=== PATIENT | female | born 1930 | race Caucasian/White ===

== ENCOUNTER → 2017-06-09 | Outpatient (REF) | payer MEDICARE ==
[2017-06-09 17:54] LABS: BASO % 0.4 % (0.0-1.0); EOS # 0.3 10^3/uL (0.0-0.50); EOS % 2.7 % (0.0-3.0); HEMATOCRIT 41.3 % (36.0-47.0); HEMOGLOBIN 13.6 g/dl (12.0-15.5); IMMATURE GRANULOCYTE % 0.2 % (0-3.0); LYMPH # 2.8 10^3/uL (1.5-4.5); LYMPH % 28.2 % (24.0-44.0); MEAN CORPUSCULAR HEMOGLOBIN 30.5 pg (27.0-33.0); MEAN CORPUSCULAR HGB CONC 32.9 g/dl (32.0-36.5); MEAN CORPUSCULAR VOLUME 92.6 fl (80.0-96.0); MONO # 1.1 10^3/uL (0.0-0.8); MONO % 11.3 % (0.0-5.0); NEUTROPHILS # 5.6 10^3/uL (1.8-7.7); NEUTROPHILS % 57.2 % (36.0-66.0); PLATELET COUNT, AUTOMATED 312 10^3/uL (150-450); RED BLOOD COUNT 4.46 10^6/uL (4.00-5.40); RED CELL DISTRIBUTION WIDTH 12.8 % (11.5-14.5); WHITE BLOOD COUNT 9.9 10^3/uL (4.0-10.0)
[2017-06-09 18:22] LABS: ALBUMIN 3.4 GM/DL (3.2-5.2); ALBUMIN/GLOBULIN RATIO 0.77 (1.00-1.93); ALKALINE PHOSPHATASE 60 U/L (45-117); ALT/SGPT 25 U/L (12-78); ANION GAP 9 MEQ/L (8-16); AST/SGOT 10 U/L (7-37); BILIRUBIN,TOTAL 0.3 MG/DL (0.2-1.0); BLOOD UREA NITROGEN 19 MG/DL (7-18); CALCIUM LEVEL 8.7 MG/DL (8.8-10.2); CARBON DIOXIDE LEVEL 27 MEQ/L (21-32); CHLORIDE LEVEL 105 MEQ/L (98-107); CREATININE FOR GFR 0.64 MG/DL (0.55-1.30); GLOMERULAR FILTRATION RATE > 60.0 (>32); GLUCOSE, FASTING 138 MG/DL (70-100); POTASSIUM SERUM 4.1 MEQ/L (3.5-5.1); SODIUM LEVEL 141 MEQ/L (136-145); TOTAL PROTEIN 7.8 GM/DL (6.4-8.2)
== END ==
LOC: M SFHCLERA 14:16
DX: R26.2 Difficulty in walking, not elsewhere classified (principal)
CPT/HCPCS: 80053

== ENCOUNTER 2019-11-13 14:48 | Inpatient (IN) | payer MEDICARE ==
[~2019-11-13] VITALS: Ht 152.4 cm; Wt 57.6 kg
[~2019-11-13 14:48] MED LIST: FURO40TA2 PO; TRAM50TA2 PO
[2019-11-13 17:00] VITALS: BP 132/67
[2019-11-13] MEDS ORDERED: cefTRIAXone SOD 1 GM in D5W MINI-BAG PLUS 50 ML IV SCH (17:15)
[2019-11-13] MEDS ORDERED: NS 0.45% 1,000 ML IV SCH (17:15)
[2019-11-13] MEDS ORDERED: POTA10IN IV (18:37)
[2019-11-13] MEDS ORDERED: POTA1INJ IV (18:37)
[2019-11-13] MEDS ORDERED: POTA20IN2 IV (18:37)
[2019-11-13] MEDS ORDERED: CEFT1INJ5 IV (18:37)
[2019-11-13 18:57] LABS: BASO % 0.4 % (0.0-1.0); EOS # 0.1 10^3/uL (0.0-0.5); EOS % 1.2 % (0.0-3.0); HEMATOCRIT 42.4 % (36.0-47.0); HEMOGLOBIN 12.4 g/dl (12.0-15.5); LYMPH % 14.4 % (24.0-44.0); MEAN CORPUSCULAR HEMOGLOBIN 29.5 pg (27.0-33.0); MEAN CORPUSCULAR HGB CONC 29.2 g/dl (32.0-36.5); MONO # 0.6 10^3/uL (0.0-0.8); MONO % 9.3 % (0.0-5.0); NEUTROPHILS # 5.1 10^3/uL (1.5-8.5); NEUTROPHILS % 74.4 % (36.0-66.0); PLATELET COUNT, AUTOMATED 174 10^3/uL (150-450); WHITE BLOOD COUNT 6.9 10^3/uL (4.0-10.0)
[2019-11-13 19:14] LABS: HEMOGLOBIN A1c 5.8 %
[2019-11-13 19:16] LABS: ERYTHROCYTE SEDIMENTATION RATE 67 mm/hr (0-30)
[2019-11-13 19:19] LABS: ALBUMIN 2.6 GM/DL (3.2-5.2); ALT/SGPT 25 U/L (12-78); BILIRUBIN,TOTAL 1.5 MG/DL (0.2-1.0); BLOOD UREA NITROGEN 31 MG/DL (7-18); C REACTIVE PROTEIN QUANTITATIV 4.42 MG/DL (0.00-0.30); CALCIUM LEVEL 8.9 MG/DL (8.8-10.2); CARBON DIOXIDE LEVEL 33 MEQ/L (21-32); CHLORIDE LEVEL 122 MEQ/L (98-107); CREATININE FOR GFR 0.65 MG/DL (0.55-1.30); GLOMERULAR FILTRATION RATE > 60.0 (>32); GLUCOSE, FASTING 104 MG/DL (70-100); SODIUM LEVEL 159 MEQ/L (136-145); TOTAL PROTEIN 7.2 GM/DL (6.4-8.2)
[2019-11-13] MEDS ORDERED: FLEEENE12 PR (19:28)
[2019-11-13] MEDS ORDERED: ASPI-161 PO (19:28)
[2019-11-13] MEDS ORDERED: MOM30SS2 PO (19:28)
[2019-11-13] MEDS ORDERED: DULC10SU2 PR (19:28)
[2019-11-13 19:30] LABS: CK-MB VALUE MASS 7.9 NG/ML (<3.6); DIGOXIN LEVEL 0.1 NG/ML (0.5-2.0); MAGNESIUM LEVEL 1.9 MG/DL (1.8-2.4); MB/CK RELATIVE INDEX 9.63 (< OR =4); THYROID STIMULATING HORMONE 0.44 uIU/ML (0.358-3.740); TROPONIN I 0.04 NG/ML (< 0.10)
[2019-11-13] MEDS ORDERED: REME15TA PO (19:32)
[2019-11-13] MEDS ORDERED: ACET-907 PO (19:32)
[2019-11-13] MEDS ORDERED: SANT250O8 TOP (19:32)
[2019-11-13] MEDS ORDERED: ATOR40TA75 PO (19:32)
[2019-11-13] MEDS ORDERED: LISI2.5T2 PO (19:32)
[2019-11-13] MEDS ORDERED: DIGO0.123 PO (19:32)
[2019-11-13] MEDS ORDERED: METO1TAB7 PO (19:32)
[2019-11-13] MEDS ORDERED: POTASSIUM CHLORIDE 10% LIQ 20 MEQ/15 ML UDC PO SCH (21:00)
[2019-11-13] MEDS: KCL 10MEQ/100ML SWI (KRUN) 10 MEQ in IV 1 EA IV SCH ×3 (21:08→23:12)
[2019-11-13 22:00] VITALS: BP 134/66
[2019-11-13] MEDS ORDERED: KCL 20MEQ IN 0.45NS 1000ML 1,000 ML IV SCH (22:00)
[2019-11-13] MEDS: ENOXAPARIN 30MG/0.3ML SYRINGE (J1650 PER 10MG) SC SCH (23:11)
[2019-11-14 00:55] LABS: BLOOD UREA NITROGEN 31 MG/DL (7-18); CALCIUM LEVEL 8.6 MG/DL (8.8-10.2); CARBON DIOXIDE LEVEL 34 MEQ/L (21-32); CHLORIDE LEVEL 122 MEQ/L (98-107); CREATININE FOR GFR 0.64 MG/DL (0.55-1.30); GLOMERULAR FILTRATION RATE > 60.0 (>32); GLUCOSE, FASTING 95 MG/DL (70-100); POTASSIUM SERUM 3.7 MEQ/L (3.5-5.1); SODIUM LEVEL 161 MEQ/L (136-145)
[2019-11-14] MEDS: NS 0.45% 1,000 ML IV SCH ×4 (01:35→15:58)
[2019-11-14 06:00] VITALS: BP 131/64
[2019-11-14 07:02] LABS: HEMATOCRIT 40.4 % (36.0-47.0); HEMOGLOBIN 11.8 g/dl (12.0-15.5); MEAN CORPUSCULAR HEMOGLOBIN 29.6 pg (27.0-33.0); MEAN CORPUSCULAR HGB CONC 29.2 g/dl (32.0-36.5); MEAN CORPUSCULAR VOLUME 101.5 fl (80.0-96.0); PLATELET COUNT, AUTOMATED 168 10^3/uL (150-450); RED BLOOD COUNT 3.98 10^6/uL (4.00-5.40); WHITE BLOOD COUNT 6.4 10^3/uL (4.0-10.0)
[2019-11-14 07:05] LABS: BLOOD UREA NITROGEN 29 MG/DL (7-18); CALCIUM LEVEL 8.3 MG/DL (8.8-10.2); CARBON DIOXIDE LEVEL 32 MEQ/L (21-32); CHLORIDE LEVEL 121 MEQ/L (98-107); CREATININE FOR GFR 0.59 MG/DL (0.55-1.30); GLOMERULAR FILTRATION RATE > 60.0 (>32); GLUCOSE, FASTING 88 MG/DL (70-100); POTASSIUM SERUM 3.2 MEQ/L (3.5-5.1); SODIUM LEVEL 158 MEQ/L (136-145)
--- NOTE | 2019-11-14 07:34 | HPE ---
DATE OF ADMISSION: 11/13/2019 ADMITTING DIAGNOSIS: Altered mental status. HISTORY OF PRESENT ILLNESS: This is an 89-year-old female who has a history of paroxysmal atrial fibrillation, on chronic digoxin, congestive heart failure, peripheral vascular disease, chronic lymphedema who was brought into the [facility] Emergency Room due to altered mental status and decreased oral intake. She was found to have severe hypernatremia, sodium level 167, potassium 2.9. Patient had a history of cerebrovascular accident (CVA) with chronic right-sided spasticity but had normal speech at [facility]. She has had increasing loss of appetite and weight loss, fatigue and weakness for the past 1 month, and has gradually been failing with failure to thrive, refusing to eat and drink per assisted staff. Patient was transferred to [facility] for further management. Workup at [facility] included electrocardiogram, which shows atrial fibrillation, rate of 78, with nonspecific ST-T wave changes. Chest x-ray was normal. CT of the head had no acute disease. White count, hemoglobin, and platelets were all within normal limits. Creatinine was 0.6. Liver function tests were unremarkable. MEDICAL HISTORY: 1. Paroxysmal atrial fibrillation. 2. Congestive heart failure, unknown ejection fraction. 3. Peripheral vascular disease. 4. Chronic lymphedema. 5. Chronic kidney disease, stage III. 6. Coronary artery disease (CAD). 7. History of non-sustained ventricular tachycardia. 8. Electrolyte abnormalities. 9. Hypokalemia. 10. Osteoarthritis. 11. Nasal fracture. 12. Degenerative joint disease. 13. Hypertension. 14. Cellulitis. 15. Hyponatremia. 16. Urinary tract infection. 17. Supraventricular tachycardia (SVT). 18. Myofascial strain. PAST SURGICAL HISTORY: Hysterectomy. HOME MEDICATIONS: - Santyl externally - mirtazapine 15 mg daily - milk of magnesium as needed - metoprolol 50 mg daily - lisinopril 2.5 daily - Dulcolax rectally - digoxin 0.125 daily - atorvastatin 40 daily - aspirin 81 daily - Tylenol and Advil as needed ALLERGIES: No known drug allergies. SOCIAL HISTORY: Lives at [facility]. Denies alcohol, recreational drug use, or smoking history. FAMILY HISTORY: Noncontributory due to advanced age. REVIEW OF SYSTEMS: Could not be fully obtained, as the patient is confused. PHYSICAL EXAMINATION: Temperature 96.8, pulse 75, irregularly irregular, blood pressure 132/67, respiratory rate 19, 97% on 2 liters nasal cannula. GENERAL: Patient is awake, alert, oriented to herself. Able to state that her name is Luz Elena Herrera. She is oriented to place and says that it is [facility]. Says that it is 2003. She is lethargic. Face is symmetric. Does not fully follow commands. Patient has very dry, chapped lips. No jugular venous distention (JVD). No thyromegaly. LUNGS: Clear to auscultation. No wheezing, rales, or rhonchi. HEART: S1, S2, irregularly irregular.. ABDOMEN: Soft, nontender, nondistended. Positive bowel sounds. EXTREMITIES: Chronic lymphedema with thick, silver plaques on the right lower extremity, especially the dorsa aspect of the right foot. No signs of acute cellulitis or induration. There are no open ulcers. LABORATORY DATA: From [facility]: White count 8.2, hemoglobin 14, hematocrit 48, platelet count 213. Sodium 167, potassium 2.9, chloride 113, bicarbonate 38, BUN 35, creatinine 0.6, glucose 139. Total bilirubin 1.8, alkaline phosphatase 69, AST 16, ALT 21, albumin 3.6, total protein 7.1. Urinalysis at [facility]: Bacteria 3+, 10-15 WBC, [address] of the brain: No acute disease. Chest x-ray: No acute disease. Patient has a DO NOT RESUSCITATE at home. Family is to bring that to the hospital. Seen at [facility] due to failure to thrive, decreased oral intake, severe hypernatremia and hypokalemia, and a urinary tract infection. IMPRESSION: 1. Acute metabolic encephalopathy with severe hydration and hypernatremia. 2. Hypernatremia/dehydration. 3. Hypokalemia. 4. Chronic atrial fibrillation. 5. Abnormal EKG with atrial fibrillation. 6. Acute urinary tract infection. 7. Hypokalemia. 8. Chronic dementia. 9. Chronic lymphedema. 10. Hypertensive heart disease. 11. History of chronic renal insufficiency, stage III. PLAN: Patient is admitted to [facility] ([facility]). Goal sodium level is 157 at 10 a.m. tomorrow morning. Continue on half-normal saline at 100 mL per hour and basic metabolic profile (BMP) every 6 hours. Patient is at risk for seizure activity. She currently is exhibiting altered mental status due to severe dehydration. Monitor for congestive heart failure. Obtain a 2D echo regarding history of congestive heart failure (CHF). No recent echo available at [facility]. Monitor for worsening respiratory status. Ceftriaxone has been given at 2 p.m. at [facility]. Will resume 1 gram intravenous (IV) every 24 starting tomorrow morning. Obtain urinalysis (UA), urine culture and sensitivity (C and S) and obtain records from [facility] once microbiology has been obtained. We will check digoxin level due to recent history of 1 month of decreased oral intake to rule out digoxin toxicity. EKG was unrevealing, but we will check a digoxin level. Resume at a smaller dose in light of severe dehydration. Monitor patient's blood pressure on her home dose of lisinopril and metoprolol with holding parameters. Patient may be an aspiration risk; therefore, we can hold off on all other medications. If there is an aspiration issue overnight, we will obtain a swallow evaluation in the morning. Physical therapy (PT)/occupational therapy (OT) will be consulted in the morning. She currently does not require a sitter. Deep venous thrombosis (DVT) prophylaxis will be provided with Lovenox injection. Patient is DO NOT RESUSCITATE, DO NOT INTUBATE. MTDD
[2019-11-14] MEDS ORDERED: MEGESTROL 400MG 10ML SUSP ORAL SYRINGE *DRAW UP EXACT DOSE PO SCH (09:00)
[2019-11-14] MEDS ORDERED: POTASSIUM CHLORIDE 10% LIQ 20 MEQ/15 ML UDC PO ONE (10:00)
[2019-11-14] MEDS ORDERED: E-Z-PAQUE 96% w/w SUSP 176GM BTL As Ordered ONE (10:32)
[2019-11-14] MEDS ORDERED: VARIBAR NECTAR 40% w/v 240ML SUSP BTL As Ordered ONE (10:32)
[2019-11-14] MEDS ORDERED: VARIBAR PUDDING 40% w/v 230ML TUBE As Ordered ONE (10:32)
[2019-11-14] MEDS ORDERED: BARIUM SULFATE 700 MG TABLET (E-Z-DISK) As Ordered ONE (10:32)
[2019-11-14 12:42] LABS: BLOOD UREA NITROGEN 26 MG/DL (7-18); CALCIUM LEVEL 8.3 MG/DL (8.8-10.2); CARBON DIOXIDE LEVEL 33 MEQ/L (21-32); CHLORIDE LEVEL 119 MEQ/L (98-107); CREATININE FOR GFR 0.62 MG/DL (0.55-1.30); GLOMERULAR FILTRATION RATE > 60.0 (>32); GLUCOSE, FASTING 92 MG/DL (70-100); POTASSIUM SERUM 3.6 MEQ/L (3.5-5.1); SODIUM LEVEL 158 MEQ/L (136-145)
[2019-11-14 14:00] VITALS: BP 131/63
[2019-11-14] MEDS: cefTRIAXone SOD 1 GM in D5W MINI-BAG PLUS 50 ML IV SCH (14:41)
[2019-11-14] MEDS ORDERED: NS 1,000 ML IV ONE (16:15)
[2019-11-14] MEDS: NS 1,000 ML IV SCH (17:24)
[2019-11-14 18:58] LABS: BLOOD UREA NITROGEN 24 MG/DL (7-18); CALCIUM LEVEL 7.9 MG/DL (8.8-10.2); CARBON DIOXIDE LEVEL 28 MEQ/L (21-32); CHLORIDE LEVEL 121 MEQ/L (98-107); CREATININE FOR GFR 0.56 MG/DL (0.55-1.30); GLOMERULAR FILTRATION RATE > 60.0 (>32); GLUCOSE, FASTING 97 MG/DL (70-100); POTASSIUM SERUM 3.7 MEQ/L (3.5-5.1); SODIUM LEVEL 154 MEQ/L (136-145)
[2019-11-14] MEDS: ENOXAPARIN 30MG/0.3ML SYRINGE (J1650 PER 10MG) SC SCH (20:06)
[2019-11-14 22:00] VITALS: BP 105/50
[2019-11-15] MEDS: NS 1,000 ML IV SCH (00:18)
[2019-11-15 00:23] LABS: BLOOD UREA NITROGEN 22 MG/DL (7-18); CALCIUM LEVEL 7.7 MG/DL (8.8-10.2); CARBON DIOXIDE LEVEL 30 MEQ/L (21-32); CHLORIDE LEVEL 123 MEQ/L (98-107); CREATININE FOR GFR 0.58 MG/DL (0.55-1.30); GLOMERULAR FILTRATION RATE > 60.0 (>32); GLUCOSE, FASTING 93 MG/DL (70-100); POTASSIUM SERUM 3.4 MEQ/L (3.5-5.1); SODIUM LEVEL 156 MEQ/L (136-145)
[2019-11-15 06:00] VITALS: BP 125/58
[2019-11-15 07:05] LABS: MEAN CORPUSCULAR HEMOGLOBIN 29.7 pg (27.0-33.0); MEAN CORPUSCULAR HGB CONC 29.4 g/dl (32.0-36.5); MEAN CORPUSCULAR VOLUME 100.9 fl (80.0-96.0); PLATELET COUNT, AUTOMATED 129 10^3/uL (150-450); RED BLOOD COUNT 3.37 10^6/uL (4.00-5.40); WHITE BLOOD COUNT 4.9 10^3/uL (4.0-10.0)
[2019-11-15 07:25] LABS: BLOOD UREA NITROGEN 21 MG/DL (7-18); CALCIUM LEVEL 7.8 MG/DL (8.8-10.2); CARBON DIOXIDE LEVEL 31 MEQ/L (21-32); CHLORIDE LEVEL 123 MEQ/L (98-107); CREATININE FOR GFR 0.53 MG/DL (0.55-1.30); GLOMERULAR FILTRATION RATE > 60.0 (>32); GLUCOSE, FASTING 83 MG/DL (70-100); POTASSIUM SERUM 3.5 MEQ/L (3.5-5.1); SODIUM LEVEL 157 MEQ/L (136-145)
--- NOTE | 2019-11-15 08:30 | REPVR ---
PROCEDURE INFORMATION: Exam: XR Chest, 1 View Exam date and time: 11/15/2019 7:54 AM Age: 89 years old Clinical indication: Other: UTI; Additional info: AMS TECHNIQUE: Imaging protocol: XR of the chest Views: 1 view. COMPARISON: CR Chest, 1 view 11/05/2013 3:39 PM FINDINGS: Lungs: Coarse bilateral perihilar nonspecific reticulonodular opacities. Pleural space: Unremarkable. No pleural effusion. No pneumothorax. Heart/Mediastinum: Unremarkable. No cardiomegaly. Vasculature: Atherosclerotic disease. Bones/joints: Osteopenia. Degenerative changes in the bilateral shoulders. Multilevel degenerative disc disease of the thoracic spine. IMPRESSION: Coarse bilateral perihilar nonspecific reticulonodular opacities. Electronically signed by: Erick Dobson On 11/15/2019 08:29:24 AM
[2019-11-15] MEDS: D5W 1,000 ML IV SCH ×2 (08:48→10:12)
--- NOTE | 2019-11-15 11:24 | REPVR ---
PROCEDURE INFORMATION: Exam: CT Head Without Contrast Exam date and time: 11/15/2019 10:22 AM Age: 89 years old Clinical indication: Altered mental status/memory loss; Additional info: AMS TECHNIQUE: Imaging protocol: Computed tomography of the head without contrast. Radiation optimization: All CT scans at this facility use at least one of these dose optimization techniques: automated exposure control; mA and/or kV adjustment per patient size (includes targeted exams where dose is matched to clinical indication); or iterative reconstruction. COMPARISON: CT Head without contrast 11/05/2013 6:44 PM FINDINGS: Brain: There is no acute intracranial hemorrhage or mass effect. Moderate diffuse volume loss is within the range of normal for patient age. There are small vessel ischemic changes within the periventricular and subcortical white matter, but the normal schmitz-white matter delineation is maintained. Chronic lacunar infarcts involve the basal ganglia. Ventricles: Prominence of the ventricular system is commensurate with volume loss. Bones/joints: Unremarkable. No acute fracture. Paranasal sinuses: Visualized sinuses are unremarkable. No fluid levels. Mastoid air cells: Visualized mastoid air cells are well aerated. Soft tissues: Unremarkable. IMPRESSION: No acute hemorrhage or edema. Chronic changes. Electronically signed by: Ivonne Pryor On 11/15/2019 11:23:51 AM
[2019-11-15] MEDS: NYSTATIN 500,000 U/5 ML SUSP UDC SS SCH ×4 (11:36→21:03)
[2019-11-15] MEDS: ASPIRIN 81 MG ENTERIC TAB PO SCH (11:41)
[2019-11-15] MEDS: DIGOXIN 0.125 MG TAB PO SCH (11:41)
[2019-11-15] MEDS: cefTRIAXone SOD 1 GM in D5W MINI-BAG PLUS 50 ML IV SCH (13:12)
[2019-11-15] MEDS ORDERED: D5W 1,000 ML IV SCH (13:15)
[2019-11-15 14:00] VITALS: BP 101/46
[2019-11-15 14:05] LABS: BLOOD UREA NITROGEN 22 MG/DL (7-18); CARBON DIOXIDE LEVEL 30 MEQ/L (21-32); CHLORIDE LEVEL 113 MEQ/L (98-107); CREATININE FOR GFR 0.71 MG/DL (0.55-1.30); GLOMERULAR FILTRATION RATE > 60.0 (>32); GLUCOSE, FASTING 288 MG/DL (70-100); SODIUM LEVEL 147 MEQ/L (136-145)
[2019-11-15] MEDS ORDERED: KCL 20MEQ IN D5W 1000ML 1,000 ML IV SCH (16:00)
--- NOTE | 2019-11-15 16:58 | REPVR ---
PROCEDURE INFORMATION: Exam: US Retroperitoneal Limited, Kidneys Exam date and time: 11/15/2019 4:04 PM Age: 89 years old Clinical indication: Condition or disease; Other: Tristen; Additional info: Retention TECHNIQUE: Imaging protocol: Real-time ultrasound of the retroperitoneum with image documentation. Examination was focused on the kidneys. COMPARISON: No relevant prior studies available. FINDINGS: Right kidney: Right kidney is small 8.6 cm. There is no solid masses, calculi or hydronephrosis. Left kidney: The left kidney is echogenic at 10.7 cm. There is no solid masses, calculi or hydronephrosis. Bladder: There is a Oconnor catheter noted within urinary bladder. Gallbladder: Stones and sludge are noted incidentally within the gallbladder with gallbladder wall thickening at 4.6 mm. IMPRESSION: 1. Slightly echogenic left kidney. 2. Small right kidney. 3. Sludge and stones incidentally noted within the gallbladder. Thickened gallbladder wall. Electronically signed by: Harvinder Stapleton On 11/15/2019 16:57:46 PM
[2019-11-15 19:00] LABS: IONIZED CALCIUM 4.2 MG/DL (4.5-5.3)
[2019-11-15 19:32] LABS: BLOOD UREA NITROGEN 16 MG/DL (7-18); CALCIUM LEVEL 7.5 MG/DL (8.8-10.2); CARBON DIOXIDE LEVEL 27 MEQ/L (21-32); CHLORIDE LEVEL 113 MEQ/L (98-107); CREATININE FOR GFR 0.64 MG/DL (0.55-1.30); GLOMERULAR FILTRATION RATE > 60.0 (>32); GLUCOSE, FASTING 215 MG/DL (70-100); MAGNESIUM LEVEL 1.4 MG/DL (1.8-2.4); POTASSIUM SERUM 3.3 MEQ/L (3.5-5.1); SODIUM LEVEL 146 MEQ/L (136-145)
[2019-11-15] MEDS: ENOXAPARIN 30MG/0.3ML SYRINGE (J1650 PER 10MG) SC SCH (21:04)
[2019-11-15 22:00] VITALS: BP 124/63
[2019-11-16 00:39] LABS: BLOOD UREA NITROGEN 16 MG/DL (7-18); CALCIUM LEVEL 7.9 MG/DL (8.8-10.2); CARBON DIOXIDE LEVEL 28 MEQ/L (21-32); CHLORIDE LEVEL 112 MEQ/L (98-107); CREATININE FOR GFR 0.57 MG/DL (0.55-1.30); GLOMERULAR FILTRATION RATE > 60.0 (>32); GLUCOSE, FASTING 162 MG/DL (70-100); POTASSIUM SERUM 3.1 MEQ/L (3.5-5.1); SODIUM LEVEL 144 MEQ/L (136-145)
[2019-11-16 06:00] VITALS: BP 129/62
[2019-11-16 07:44] LABS: MAGNESIUM LEVEL 1.3 MG/DL (1.8-2.4)
[2019-11-16 07:53] LABS: HEMATOCRIT 35.2 % (36.0-47.0); HEMOGLOBIN 10.8 g/dl (12.0-15.5); MEAN CORPUSCULAR HEMOGLOBIN 29.4 pg (27.0-33.0); MEAN CORPUSCULAR HGB CONC 30.7 g/dl (32.0-36.5); MEAN CORPUSCULAR VOLUME 95.9 fl (80.0-96.0); PLATELET COUNT, AUTOMATED 115 10^3/uL (150-450); RED BLOOD COUNT 3.67 10^6/uL (4.00-5.40); WHITE BLOOD COUNT 4.6 10^3/uL (4.0-10.0)
[2019-11-16 08:11] LABS: BLOOD UREA NITROGEN 12 MG/DL (7-18); CALCIUM LEVEL 7.7 MG/DL (8.8-10.2); CARBON DIOXIDE LEVEL 30 MEQ/L (21-32); CHLORIDE LEVEL 115 MEQ/L (98-107); CREATININE FOR GFR 0.46 MG/DL (0.55-1.30); GLOMERULAR FILTRATION RATE > 60.0 (>32); GLUCOSE, FASTING 111 MG/DL (70-100); POTASSIUM SERUM 3.3 MEQ/L (3.5-5.1); SODIUM LEVEL 151 MEQ/L (136-145)
[2019-11-16 08:20] LABS: MAGNESIUM LEVEL 1.4 MG/DL (1.8-2.4)
[2019-11-16] MEDS ORDERED: MAG SULF 1GM/100ML (MAG RUN) 1 GM in IV 1 EA IV ONE (09:00)
[2019-11-16] MEDS: DIGOXIN 0.125 MG TAB PO SCH (09:00)
[2019-11-16] MEDS: NYSTATIN 500,000 U/5 ML SUSP UDC SS SCH ×4 (09:00→21:12)
[2019-11-16] MEDS ORDERED: KCL 40MEQ IN D5/0.45NS 1000ML 1,000 ML IV SCH (09:00)
[2019-11-16] MEDS: ASPIRIN 81 MG ENTERIC TAB PO SCH (09:00)
[2019-11-16 12:27] LABS: BLOOD UREA NITROGEN 12 MG/DL (7-18); CALCIUM LEVEL 8.1 MG/DL (8.8-10.2); CARBON DIOXIDE LEVEL 30 MEQ/L (21-32); CHLORIDE LEVEL 114 MEQ/L (98-107); CREATININE FOR GFR 0.46 MG/DL (0.55-1.30); GLOMERULAR FILTRATION RATE > 60.0 (>32); GLUCOSE, FASTING 157 MG/DL (70-100); POTASSIUM SERUM 3.5 MEQ/L (3.5-5.1); SODIUM LEVEL 147 MEQ/L (136-145)
[2019-11-16] MEDS: KCL 20MEQ IN D5W 1000ML 1,000 ML IV SCH ×2 (13:00→17:35)
[2019-11-16] MEDS: cefTRIAXone SOD 1 GM in D5W MINI-BAG PLUS 50 ML IV SCH (13:14)
[2019-11-16 14:00] VITALS: BP 122/71
[2019-11-16] MEDS: ENOXAPARIN 30MG/0.3ML SYRINGE (J1650 PER 10MG) SC SCH (21:12)
[2019-11-16 22:00] VITALS: BP 122/70
[2019-11-16] MEDS: ONDANSETRON 4MG/2ML VIAL IV PRN (23:33)
[2019-11-17 00:57] LABS: BLOOD UREA NITROGEN 8 MG/DL (7-18); CALCIUM LEVEL 7.9 MG/DL (8.8-10.2); CARBON DIOXIDE LEVEL 26 MEQ/L (21-32); CHLORIDE LEVEL 114 MEQ/L (98-107); CREATININE FOR GFR 0.56 MG/DL (0.55-1.30); GLOMERULAR FILTRATION RATE > 60.0 (>32); GLUCOSE, FASTING 166 MG/DL (70-100); POTASSIUM SERUM 3.9 MEQ/L (3.5-5.1); SODIUM LEVEL 148 MEQ/L (136-145)
[2019-11-17 06:00] VITALS: BP 121/69
[2019-11-17] MEDS: LINEZOLID 600 MG in IV 1 EA IV SCH ×2 (06:40→17:30)
[2019-11-17 08:31] LABS: HEMATOCRIT 33.9 % (36.0-47.0); MEAN CORPUSCULAR HEMOGLOBIN 30.2 pg (27.0-33.0); MEAN CORPUSCULAR HGB CONC 32.4 g/dl (32.0-36.5); MEAN CORPUSCULAR VOLUME 93.1 fl (80.0-96.0); PLATELET COUNT, AUTOMATED 114 10^3/uL (150-450); RED BLOOD COUNT 3.64 10^6/uL (4.00-5.40); WHITE BLOOD COUNT 5.2 10^3/uL (4.0-10.0)
[2019-11-17 08:36] LABS: BLOOD UREA NITROGEN 7 MG/DL (7-18); CALCIUM LEVEL 7.7 MG/DL (8.8-10.2); CARBON DIOXIDE LEVEL 28 MEQ/L (21-32); CHLORIDE LEVEL 113 MEQ/L (98-107); CREATININE FOR GFR 0.38 MG/DL (0.55-1.30); GLOMERULAR FILTRATION RATE > 60.0 (>32); GLUCOSE, FASTING 113 MG/DL (70-100); POTASSIUM SERUM 3.7 MEQ/L (3.5-5.1); SODIUM LEVEL 147 MEQ/L (136-145)
[2019-11-17] MEDS: ASPIRIN 81 MG ENTERIC TAB PO SCH (08:54)
[2019-11-17] MEDS: NYSTATIN 500,000 U/5 ML SUSP UDC SS SCH ×6 (08:54→20:08)
[2019-11-17] MEDS: DIGOXIN 0.125 MG TAB PO SCH (09:00)
[2019-11-17] MEDS: D5W 1,000 ML IV SCH ×2 (09:01→20:02)
[2019-11-17 13:46] LABS: BLOOD UREA NITROGEN 7 MG/DL (7-18); CALCIUM LEVEL 7.4 MG/DL (8.8-10.2); CARBON DIOXIDE LEVEL 29 MEQ/L (21-32); CHLORIDE LEVEL 112 MEQ/L (98-107); GLOMERULAR FILTRATION RATE > 60.0 (>32); GLUCOSE, FASTING 136 MG/DL (70-100); POTASSIUM SERUM 3.7 MEQ/L (3.5-5.1); SODIUM LEVEL 146 MEQ/L (136-145)
[2019-11-17 14:00] VITALS: BP 104/62
[2019-11-17] MEDS: ENOXAPARIN 30MG/0.3ML SYRINGE (J1650 PER 10MG) SC SCH (20:03)
[2019-11-17 22:00] VITALS: BP 118/66
[2019-11-18 00:26] LABS: BLOOD UREA NITROGEN 6 MG/DL (7-18); CALCIUM LEVEL 7.8 MG/DL (8.8-10.2); CARBON DIOXIDE LEVEL 30 MEQ/L (21-32); CHLORIDE LEVEL 109 MEQ/L (98-107); GLOMERULAR FILTRATION RATE > 60.0 (>32); GLUCOSE, FASTING 147 MG/DL (70-100); POTASSIUM SERUM 3.5 MEQ/L (3.5-5.1); SODIUM LEVEL 142 MEQ/L (136-145)
[2019-11-18] MEDS: LINEZOLID 600 MG in IV 1 EA IV SCH (05:33)
[2019-11-18] MEDS: D5W 1,000 ML IV SCH ×2 (05:33→21:01)
[2019-11-18 06:00] VITALS: BP 114/82
[2019-11-18] MEDS: NYSTATIN 500,000 U/5 ML SUSP UDC SS SCH ×5 (08:30→21:01)
[2019-11-18] MEDS: DIGOXIN 0.125 MG TAB PO SCH (08:30)
[2019-11-18] MEDS: ASPIRIN 81 MG ENTERIC TAB PO SCH (08:31)
[2019-11-18 08:47] LABS: HEMATOCRIT 34.8 % (36.0-47.0); HEMOGLOBIN 10.8 g/dl (12.0-15.5); MEAN CORPUSCULAR HEMOGLOBIN 29.2 pg (27.0-33.0); MEAN CORPUSCULAR VOLUME 94.1 fl (80.0-96.0); PLATELET COUNT, AUTOMATED 110 10^3/uL (150-450); WHITE BLOOD COUNT 5.2 10^3/uL (4.0-10.0)
[2019-11-18 09:12] LABS: BLOOD UREA NITROGEN 6 MG/DL (7-18); CALCIUM LEVEL 7.8 MG/DL (8.8-10.2); CARBON DIOXIDE LEVEL 30 MEQ/L (21-32); CHLORIDE LEVEL 109 MEQ/L (98-107); CREATININE FOR GFR 0.58 MG/DL (0.55-1.30); GLOMERULAR FILTRATION RATE > 60.0 (>32); GLUCOSE, FASTING 152 MG/DL (70-100); POTASSIUM SERUM 3.5 MEQ/L (3.5-5.1); SODIUM LEVEL 145 MEQ/L (136-145)
[2019-11-18 13:07] LABS: BLOOD UREA NITROGEN 5 MG/DL (7-18); CALCIUM LEVEL 7.6 MG/DL (8.8-10.2); CARBON DIOXIDE LEVEL 31 MEQ/L (21-32); CHLORIDE LEVEL 108 MEQ/L (98-107); CREATININE FOR GFR 0.52 MG/DL (0.55-1.30); GLOMERULAR FILTRATION RATE > 60.0 (>32); GLUCOSE, FASTING 151 MG/DL (70-100); POTASSIUM SERUM 3.4 MEQ/L (3.5-5.1); SODIUM LEVEL 142 MEQ/L (136-145)
[2019-11-18 14:00] VITALS: BP 110/68
[2019-11-18] MEDS ORDERED: KCL 40MEQ IN D5/0.45NS 1000ML 1,000 ML IV SCH (16:30)
[2019-11-18] MEDS: ENOXAPARIN 30MG/0.3ML SYRINGE (J1650 PER 10MG) SC SCH ×2 (21:00→21:01)
[2019-11-18] MEDS: LINEZOLID 600MG TABLET (ZYVOX) PO SCH ×2 (21:00→21:01)
[2019-11-18 22:00] VITALS: BP 137/77
[2019-11-19 00:30] LABS: BLOOD UREA NITROGEN 4 MG/DL (7-18); CALCIUM LEVEL 7.8 MG/DL (8.8-10.2); CARBON DIOXIDE LEVEL 28 MEQ/L (21-32); CHLORIDE LEVEL 108 MEQ/L (98-107); CREATININE FOR GFR 0.57 MG/DL (0.55-1.30); GLOMERULAR FILTRATION RATE > 60.0 (>32); GLUCOSE, FASTING 183 MG/DL (70-100); POTASSIUM SERUM 3.8 MEQ/L (3.5-5.1); SODIUM LEVEL 140 MEQ/L (136-145)
[2019-11-19] MEDS: D5W 1,000 ML IV SCH ×2 (03:25→12:32)
[2019-11-19 06:00] VITALS: BP 145/90
[2019-11-19] MEDS: ONDANSETRON 4MG/2ML VIAL IV PRN (06:14)
[2019-11-19] MEDS: NYSTATIN 500,000 U/5 ML SUSP UDC SS SCH ×5 (10:16→21:00)
[2019-11-19] MEDS: ASPIRIN 81 MG ENTERIC TAB PO SCH ×2 (10:16→10:32)
[2019-11-19] MEDS: DIGOXIN 0.125 MG TAB PO SCH ×2 (10:16→10:33)
[2019-11-19] MEDS ORDERED: D5W 1,000 ML IV ONE (10:30)
[2019-11-19] MEDS: LINEZOLID 600MG TABLET (ZYVOX) PO SCH (10:33)
[2019-11-19] MEDS ORDERED: METOCLOPRAMIDE INJ 10MG/2ML VIAL (J2765 PER 1) As Ordered ONE (10:41)
[2019-11-19] MEDS ORDERED: KETOROLAC 30 MG/ML 1ML VIAL As Ordered ONE (10:41)
[2019-11-19] MEDS ORDERED: METOCLOPRAMIDE INJ 10MG/2ML VIAL (J2765 PER 1) IV ONE (10:45)
[2019-11-19] MEDS ORDERED: KETOROLAC 30 MG/ML 1ML VIAL IV ONE (10:45)
[2019-11-19 11:16] LABS: HEMOGLOBIN 12.5 g/dl (12.0-15.5); MEAN CORPUSCULAR HEMOGLOBIN 29.3 pg (27.0-33.0); MEAN CORPUSCULAR HGB CONC 32.1 g/dl (32.0-36.5); MEAN CORPUSCULAR VOLUME 91.5 fl (80.0-96.0); PLATELET COUNT, AUTOMATED 134 10^3/uL (150-450); RED BLOOD COUNT 4.26 10^6/uL (4.00-5.40); WHITE BLOOD COUNT 6.1 10^3/uL (4.0-10.0)
[2019-11-19 11:39] LABS: BLOOD UREA NITROGEN 4 MG/DL (7-18); CALCIUM LEVEL 8.2 MG/DL (8.8-10.2); CARBON DIOXIDE LEVEL 28 MEQ/L (21-32); CHLORIDE LEVEL 107 MEQ/L (98-107); CREATININE FOR GFR 0.55 MG/DL (0.55-1.30); GLOMERULAR FILTRATION RATE > 60.0 (>32); GLUCOSE, FASTING 140 MG/DL (70-100); POTASSIUM SERUM 3.8 MEQ/L (3.5-5.1); SODIUM LEVEL 143 MEQ/L (136-145)
[2019-11-19] MEDS: LINEZOLID 600 MG in IV 1 EA IV SCH ×2 (12:32→23:19)
[2019-11-19 14:00] VITALS: BP 110/78
[2019-11-19] MEDS: ENOXAPARIN 30MG/0.3ML SYRINGE (J1650 PER 10MG) SC SCH (21:00)
[2019-11-19 22:00] VITALS: BP 140/62
[2019-11-20 00:39] LABS: BLOOD UREA NITROGEN 4 MG/DL (7-18); CALCIUM LEVEL 7.7 MG/DL (8.8-10.2); CARBON DIOXIDE LEVEL 28 MEQ/L (21-32); CHLORIDE LEVEL 104 MEQ/L (98-107); GLOMERULAR FILTRATION RATE > 60.0 (>32); GLUCOSE, FASTING 140 MG/DL (70-100); POTASSIUM SERUM 3.4 MEQ/L (3.5-5.1); SODIUM LEVEL 137 MEQ/L (136-145)
[2019-11-20] MEDS: D5W 1,000 ML IV SCH (05:23)
[2019-11-20 06:00] VITALS: BP 131/65
[2019-11-20 06:26] LABS: HEMATOCRIT 33.4 % (36.0-47.0); HEMOGLOBIN 10.9 g/dl (12.0-15.5); MEAN CORPUSCULAR HEMOGLOBIN 29.6 pg (27.0-33.0); MEAN CORPUSCULAR HGB CONC 32.6 g/dl (32.0-36.5); MEAN CORPUSCULAR VOLUME 90.8 fl (80.0-96.0); PLATELET COUNT, AUTOMATED 116 10^3/uL (150-450); RED BLOOD COUNT 3.68 10^6/uL (4.00-5.40)
[2019-11-20 07:55] LABS: BLOOD UREA NITROGEN 4 MG/DL (7-18); CALCIUM LEVEL 7.9 MG/DL (8.8-10.2); CARBON DIOXIDE LEVEL 28 MEQ/L (21-32); CHLORIDE LEVEL 103 MEQ/L (98-107); CREATININE FOR GFR 0.57 MG/DL (0.55-1.30); GLOMERULAR FILTRATION RATE > 60.0 (>32); GLUCOSE, FASTING 132 MG/DL (70-100); POTASSIUM SERUM 3.5 MEQ/L (3.5-5.1); SODIUM LEVEL 139 MEQ/L (136-145)
[2019-11-20] MEDS: ASPIRIN 81 MG ENTERIC TAB PO SCH (09:00)
[2019-11-20] MEDS: DIGOXIN 0.125 MG TAB PO SCH (09:00)
[2019-11-20] MEDS: NYSTATIN 500,000 U/5 ML SUSP UDC SS SCH ×4 (09:38→21:25)
[2019-11-20] MEDS ORDERED: PINK BISMUTH SUSP 524MG/30ML ORAL SYRINGE PO PRN (11:15)
[2019-11-20] MEDS: LINEZOLID 600 MG in IV 1 EA IV SCH ×2 (11:26→22:47)
[2019-11-20 12:53] LABS: BLOOD UREA NITROGEN 5 MG/DL (7-18); CALCIUM LEVEL 8.1 MG/DL (8.8-10.2); CARBON DIOXIDE LEVEL 27 MEQ/L (21-32); CHLORIDE LEVEL 103 MEQ/L (98-107); CREATININE FOR GFR 0.56 MG/DL (0.55-1.30); GLOMERULAR FILTRATION RATE > 60.0 (>32); GLUCOSE, FASTING 140 MG/DL (70-100); POTASSIUM SERUM 3.4 MEQ/L (3.5-5.1); SODIUM LEVEL 136 MEQ/L (136-145)
[2019-11-20 14:00] VITALS: BP 109/70
[2019-11-20] MEDS: ONDANSETRON 4MG/2ML VIAL IV PRN (16:44)
--- NOTE | 2019-11-20 19:05 | IPNPDOC ---
Subjective Date Seen The patient was seen on 11/20/19. Subjective Chief Complaint/HPI Complains of dryness of the eyes which is bothering her and says they are watering. Took a sip of water today was able to swallow without difficulty no cough noted. However refuses to eat any food or drink anything else says everything tastes bad. Reports her stomach does not feel right so she cannot eat. Asked for Pepto bismol Objective Physical Examination General Exam: Positive: Alert, Cooperative, No Acute Distress Eye Exam: Positive: PERRLA, Other Eye Symptoms (watering from the eyes) Assessment /Plan Assessment This is an 89-year-old female who has a history of Dementia, cerebrovascular accident (CVA) with chronic right-sided spasticity paroxysmal atrial fibrillation, on chronic digoxin, congestive heart failure, peripheral vascular disease, chronic lymphedema who was brought into the [facility] Emergency Room due to altered mental status and decreased oral intake. She was found to have severe hypernatremia, sodium level 167, potassium 2.9. She has had increasing loss of appetite and weight loss, fatigue and weakness for the past 1month, and has gradually been failing with failure to thrive, refusing to eat and drink per retirement staff. Patient was transferred to [facility] for further management. She was admitted for acute metabolic encephalopathy, failure to thrive. Acute metabolic encephalopathy due to severe hypernatremia now improved. However still refusing to eat or drink . Says that everything tastes bad. She answers simple questions. will continue on IV dextrose. Hypokalemia continue IV replacements. Dementia with failure to thrive due to poor oral intake. will discuss with family about PEG tube. Old CVA with contractures bed bound no dysarthria. Paroxysmal atrial fibrillation. on digoxin at [place] but here did not get any refusing all meds Congestive heart failure, unknown ejection fraction. No fluid overload at present. Peripheral vascular disease. not taking ASA Chronic lymphedema. Chronic kidney disease, stage III. creatinine at baseline Coronary artery disease (CAD). Osteoarthritis/ Degenerative joint disease/ contracture does not complain of pain. Hypertension. here bp not elevated Urinary tract infection. Cx in [place] Klebsiella Here Urine cx VRE on linezolid. GI prophylaxis PPI. Plan/VTE VTE Prophylaxis Ordered?: Yes VS, I&O, 24H, Fishbone Vital Signs/I&O Vital Signs Date Time Temp Pulse Resp B/P (MAP) Pulse Ox O2 Delivery O2 Flow Rate FiO2 11/20/19 14:00 97.5 72 16 109/70 (83) 97 Room Air I&O- Last 24 Hours up to 6 AM 11/20/19 07:00 Intake Total 3200 ml Output Total 2450 ml Balance 750 ml Laboratory Data 24H LABS Laboratory Tests 2 11/19/19 23:47: Anion Gap 5L, Glomerular Filtration Rate > 60.0, Calcium Level 7.7L 11/20/19 05:41: Anion Gap 8, Glomerular Filtration Rate > 60.0, Calcium Level 7.9L, Nucleated Red Blood Cells % (auto) 0.0 11/20/19 12:14: Anion Gap 6L, Glomerular Filtration Rate > 60.0, Calcium Level 8.1L CBC/BMP Laboratory Tests 11/19/19 23:47 11/20/19 05:41 11/20/19 12:14 Microbiology Microbiology 11/14/19 Urine Culture - Final, Complete Enterococcus Faecium (Vre) 11/13/19 Blood Culture - Final, Complete NO GROWTH AFTER 5 DAYS CORDELL RINCON MD Nov 20, 2019 19:05
[2019-11-20] MEDS: PANTOPRAZOLE 40MG VIAL (C9113 PER 1) IV SCH (21:25)
[2019-11-20] MEDS: ENOXAPARIN 30MG/0.3ML SYRINGE (J1650 PER 10MG) SC SCH (21:26)
[2019-11-20 22:00] VITALS: BP 137/77
[2019-11-20] MEDS: POTASSIUM CHLORIDE INJ 40 MEQ in D5W 1,000 ML IV SCH (22:48)
[2019-11-21 06:00] VITALS: BP 128/68
[2019-11-21 07:13] LABS: BASO % 0.6 % (0.0-1.0); EOS # 0.3 10^3/uL (0.0-0.5); EOS % 4.6 % (0.0-3.0); HEMATOCRIT 33.7 % (36.0-47.0); HEMOGLOBIN 10.9 g/dl (12.0-15.5); LYMPH # 1.4 10^3/uL (1.5-5.0); LYMPH % 21.1 % (24.0-44.0); MEAN CORPUSCULAR HEMOGLOBIN 29.2 pg (27.0-33.0); MEAN CORPUSCULAR HGB CONC 32.3 g/dl (32.0-36.5); MEAN CORPUSCULAR VOLUME 90.3 fl (80.0-96.0); MONO # 0.8 10^3/uL (0.0-0.8); MONO % 11.8 % (0.0-5.0); NEUTROPHILS # 4.1 10^3/uL (1.5-8.5); NEUTROPHILS % 61.5 % (36.0-66.0); PLATELET COUNT, AUTOMATED 123 10^3/uL (150-450); RED BLOOD COUNT 3.73 10^6/uL (4.00-5.40); WHITE BLOOD COUNT 6.7 10^3/uL (4.0-10.0)
[2019-11-21 07:36] LABS: BLOOD UREA NITROGEN 5 MG/DL (7-18); CARBON DIOXIDE LEVEL 28 MEQ/L (21-32); CHLORIDE LEVEL 103 MEQ/L (98-107); CREATININE FOR GFR 0.51 MG/DL (0.55-1.30); GLOMERULAR FILTRATION RATE > 60.0 (>32); GLUCOSE, FASTING 121 MG/DL (70-100); POTASSIUM SERUM 3.7 MEQ/L (3.5-5.1); SODIUM LEVEL 137 MEQ/L (136-145)
[2019-11-21] MEDS: ONDANSETRON 4MG/2ML VIAL IV PRN (08:00)
[2019-11-21] MEDS: ASPIRIN 81 MG ENTERIC TAB PO SCH (08:02)
[2019-11-21] MEDS: DIGOXIN 0.125 MG TAB PO SCH (08:02)
[2019-11-21] MEDS: NYSTATIN 500,000 U/5 ML SUSP UDC SS SCH ×4 (08:03→20:17)
[2019-11-21] MEDS: LINEZOLID 600 MG in IV 1 EA IV SCH ×2 (11:34→23:28)
--- NOTE | 2019-11-21 12:51 | IPNPDOC ---
Subjective Date Seen The patient was seen on 11/21/19. Subjective Chief Complaint/HPI Refusing to eat. Sucking is very poor. As per daughter she deteriorated very ast over the past 1 month. She was in [facility] about a month ago for a leg infection in the lymphedema and from there she went to [place] rehab and there she was not eating anything then started loosing weight and then became this bad. As per daughter Zeynep she has been taking care of her mother for the past 6 years and the plan was to get her back home after some rehab. She is going to discuss with patient about her wishes for a feeding tube. She has been refusing to take any medicines. Objective Physical Examination General Exam: Positive: Alert, Cooperative, No Acute Distress Eye Exam: Positive: PERRLA, Other Eye Symptoms (watering from the eyes) ENT Exam: Positive: Other ENT (bitemporal wasting. ) Chest Exam: Positive: Diminished (at the bases); Negative: Rales, Rhonchi, Wheezing Heart Exam: Positive: Rate Normal, Murmurs (systolic); Negative: Gallops, Rubs, Other Abdomen Exam: Positive: Normal bowel sounds, Soft, Tenderness (epigastric tenderness), Other (scaphoid) Extremity Exam: Positive: Tenderness, Other (bilateral lymphedema. Right leg contracted to the hip) Assessment /Plan Assessment This is an 89-year-old female who has a history of Dementia, cerebrovascular accident (CVA) with chronic right-sided spasticity paroxysmal atrial fibrillation, on chronic digoxin, congestive heart failure, peripheral vascular disease, chronic lymphedema who was brought into the [facility] Emergency Room due to altered mental status and decreased oral intake. She was found to have severe hypernatremia, sodium level 167, potassium 2.9. She has had increasing loss of appetite and weight loss, fatigue and weakness for the past 1month, and has gradually been failing with failure to thrive, refusing to eat and drink per senior living staff. Patient was transferred to [facility] for further management. She was admitted for acute metabolic encephalopathy, failure to thrive. Acute metabolic encephalopathy due to severe hypernatremia now improved. However still refusing to eat or drink . Says that everything tastes bad. She answers simple questions. will continue on IV dextrose. Hypokalemia continue IV replacements. Oral thrush refusing nystatin will add fluconazole iv. Dementia with failure to thrive due to poor oral intake. discussed with family about PEG tube. they are thinking. Severe Protein calorie malnutrition As per Daughter lost about 40 to 50 lbs in the past month. Now with bitemporal wasting, wasting of small muscles of hand. Old CVA with right sided weakness with right leg now contracted WC bound for 5 years. However could stand 1 month ago though could not pivot. As per daughter the severe right leg contracture happened over the past month As present bed bound no dysarthria. Paroxysmal atrial fibrillation. on digoxin at [place] but here did not get any refusing all meds Congestive heart failure, unknown ejection fraction. No fluid overload at present. Peripheral vascular disease. not taking ASA Chronic lymphedema. Chronic kidney disease, stage III. creatinine at baseline Coronary artery disease (CAD). Osteoarthritis/ Degenerative joint disease/ contracture does not complain of pain. Hypertension. here bp not elevated Urinary tract infection. Cx in [place] Klebsiella Here Urine cx VRE on linezolid. GI prophylaxis PPI. Plan/VTE VTE Prophylaxis Ordered?: Yes VS, [facility]O Vital Signs Date Time Temp Pulse Resp B/P (MAP) Pulse Ox O2 Delivery O2 Flow Rate FiO2 11/21/19 08:02 86 11/21/19 06:00 97.8 20 128/68 (88) 96 Room Air I&O- Last 24 Hours up to 6 AM 11/21/19 06:00 Intake Total 4380 ml Output Total 1975 ml Balance 2405 ml Laboratory Data 24H LABS Laboratory Tests 2 11/21/19 05:56: Immature Granulocyte % (Auto) 0.4, Neutrophils (%) (Auto) 61.5, Lymphocytes (%) (Auto) 21.1L, Monocytes (%) (Auto) 11.8H, Eosinophils (%) (Auto) 4.6H, Basophils (%) (Auto) 0.6, Neutrophils # (Auto) 4.1, Lymphocytes # (Auto) 1.4L, Monocytes # (Auto) 0.8, Eosinophils # (Auto) 0.3, Basophils # (Auto) 0.0, Nucleated Red B lood Cells % (auto) 0.0, Anion Gap 6L, Glomerular Filtration Rate > 60.0, Calcium Level 8.0L CBC/BMP Laboratory Tests 11/21/19 05:56 Microbiology Microbiology 11/14/19 Urine Culture - Final, Complete Enterococcus Faecium (Vre) 11/13/19 Blood Culture - Final, Complete NO GROWTH AFTER 5 DAYS CORDELL RINCON MD Nov 21, 2019 12:51
[2019-11-21 13:13] LABS: ALBUMIN 1.8 GM/DL (3.2-5.2); ALT/SGPT 23 U/L (12-78); BILIRUBIN,DIRECT 0.2 MG/DL (0.0-0.2); BILIRUBIN,TOTAL 0.7 MG/DL (0.2-1.0); TOTAL PROTEIN 5.3 GM/DL (6.4-8.2)
[2019-11-21 14:00] VITALS: BP 129/67
[2019-11-21] MEDS ORDERED: FLUCONAZOLE 200 MG in IV 1 EA IV SCH (14:00)
[2019-11-21] MEDS: FLUCONAZOLE 200 MG in IV 1 EA IV SCH (17:06)
[2019-11-21] MEDS: POTASSIUM CHLORIDE INJ 40 MEQ in D5W 1,000 ML IV SCH (20:17)
[2019-11-21] MEDS: PANTOPRAZOLE 40MG VIAL (C9113 PER 1) IV SCH (20:17)
[2019-11-21] MEDS: ENOXAPARIN 30MG/0.3ML SYRINGE (J1650 PER 10MG) SC SCH (20:18)
[2019-11-21 22:00] VITALS: BP 117/77
[2019-11-22 06:00] VITALS: BP 123/78
[2019-11-22 06:14] LABS: BASO % 0.5 % (0.0-1.0); EOS # 0.3 10^3/uL (0.0-0.5); EOS % 5.4 % (0.0-3.0); HEMATOCRIT 32.5 % (36.0-47.0); HEMOGLOBIN 10.4 g/dl (12.0-15.5); LYMPH # 1.6 10^3/uL (1.5-5.0); LYMPH % 26.6 % (24.0-44.0); MEAN CORPUSCULAR HEMOGLOBIN 29.1 pg (27.0-33.0); MEAN CORPUSCULAR VOLUME 90.8 fl (80.0-96.0); MONO # 0.7 10^3/uL (0.0-0.8); MONO % 11.4 % (0.0-5.0); NEUTROPHILS # 3.3 10^3/uL (1.5-8.5); NEUTROPHILS % 55.8 % (36.0-66.0); PLATELET COUNT, AUTOMATED 119 10^3/uL (150-450); RED BLOOD COUNT 3.58 10^6/uL (4.00-5.40)
[2019-11-22 06:34] LABS: BLOOD UREA NITROGEN 5 MG/DL (7-18); CALCIUM LEVEL 8.1 MG/DL (8.8-10.2); CARBON DIOXIDE LEVEL 30 MEQ/L (21-32); CHLORIDE LEVEL 103 MEQ/L (98-107); CREATININE FOR GFR 0.53 MG/DL (0.55-1.30); GLOMERULAR FILTRATION RATE > 60.0 (>32); GLUCOSE, FASTING 111 MG/DL (70-100); POTASSIUM SERUM 4.3 MEQ/L (3.5-5.1); SODIUM LEVEL 139 MEQ/L (136-145)
[2019-11-22] MEDS: ASPIRIN 81 MG ENTERIC TAB PO SCH ×2 (09:00→10:39)
[2019-11-22] MEDS: DIGOXIN 0.125 MG TAB PO SCH ×2 (09:00→10:41)
[2019-11-22] MEDS: LINEZOLID 600 MG in IV 1 EA IV SCH ×2 (11:23→23:11)
[2019-11-22 14:00] VITALS: BP 109/86
--- NOTE | 2019-11-22 15:02 | IPNPDOC ---
Subjective Date Seen The patient was seen on 11/22/19. Subjective Chief Complaint/HPI No new events overnight. Remains confused but talking a few works. refusing food and drink. Objective Physical Examination General Exam: Positive: Alert, Cooperative, No Acute Distress Eye Exam: Positive: PERRLA, Other Eye Symptoms (watering from the eyes) ENT Exam: Positive: Other ENT (bitemporal wasting. ) Chest Exam: Positive: Diminished (at the bases); Negative: Rales, Rhonchi, Wheezing Heart Exam: Positive: Rate Normal, Murmurs (systolic); Negative: Gallops, Rubs, Other Abdomen Exam: Positive: Normal bowel sounds, Soft, Tenderness (epigastric tenderness), Other (scaphoid) Extremity Exam: Positive: Tenderness, Other (bilateral lymphedema. Right leg co ntracted to the hip) Assessment /Plan Assessment This is an 89-year-old female who has a history of Dementia, cerebrovascular accident (CVA) with chronic right-sided spasticity paroxysmal atrial fibrillation, on chronic digoxin, congestive heart failure, peripheral vascular disease, chronic lymphedema who was brought into the [facility] Emergency Room due to altered mental status and decreased oral intake. She was found to have severe hypernatremia, sodium level 167, potassium 2.9. She has had increasing loss of appetite and weight loss, fatigue and weakness for the past 1month, and has gradually been failing with failure to thrive, refusing to eat and drink per residential staff. Patient was transferred to [facility] for further management. She was admitted for acute metabolic encephalopathy, failure to thrive. Acute metabolic encephalopathy due to severe hypernatremia now improved. However still refusing to eat or drink . Says that everything tastes bad. She answers simple questions. will stop IVF, Encourage oral intake Hypokalemia resolved Oral thrush refusing nystatin fluconazole iv. Dementia with failure to thrive due to poor oral intake. discussed with family about PEG tube. They are thinking. Severe Protein calorie malnutrition As per Daughter lost about 40 to 50 lbs in the past month. Now with bitemporal wasting, wasting of small muscles of hand. 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 However could stand 1 month ago though could not pivot. As per daughter the severe right leg contracture happened over the past month As present bed bound Paroxysmal atrial fibrillation. on digoxin at [place] but here did not get any refusing all meds Congestive heart failure, unknown ejection fraction. No fluid overload at present. Peripheral vascular disease. not taking ASA Chronic lymphedema. Chronic kidney disease, stage III. creatinine at baseline Coronary artery disease (CAD). Osteoarthritis/ Degenerative joint disease/ contracture does not complain of pain. Hypertension. here bp not elevated Urinary tract infection. Cx in [place] Klebsiella Here Urine cx VRE on linezolid. GI prophylaxis PPI. Plan/VTE VTE Prophylaxis Ordered?: Yes VS, I&O, 24H, Fishbone Vital Signs/I&O Vital Signs Date Time Temp Pulse Resp B/P (MAP) Pulse Ox O2 Delivery O2 Flow Rate FiO2 11/22/19 14:00 98.0 79 22 109/86 (94) 97 Room Air I&O- Last 24 Hours up to 6 AM 11/22/19 05:59 Intake Total 1540 ml Output Total 1175 ml Balance 365 ml Laboratory Data 24H LABS Laboratory Tests 2 11/22/19 05:49: Immature Granulocyte % (Auto) 0.3, Neutrophils (%) (Auto) 55.8, Lymphocytes (%) (Auto) 26.6, Monocytes (%) (Auto) 11.4H, Eosinophils (%) (Auto) 5.4H, Basophils (%) (Auto) 0.5, Neutrophils # (Auto) 3.3, Lymphocytes # (Auto) 1.6, Monocytes # (Auto) 0.7, Eosinophils # (Auto) 0.3, Basophils # (Auto) 0.0, Nucleated Red Blood Cells % (auto) 0.0, Anion Gap 6L, Glomerular Filtration Rate > 60.0, Calcium Level 8.1L CBC/BMP Laboratory Tests 11/22/19 05:49 Microbiology Microbiology 11/14/19 Urine Culture - Final, Complete Enterococcus Faecium (Vre) 11/13/19 Blood Culture - Final, Complete NO GROWTH AFTER 5 DAYS CORDELL RINCON MD Nov 22, 2019 15:02
[2019-11-22] MEDS: FLUCONAZOLE 200 MG in IV 1 EA IV SCH (17:51)
[2019-11-22] MEDS: PANTOPRAZOLE 40MG VIAL (C9113 PER 1) IV SCH (21:18)
[2019-11-22] MEDS: ENOXAPARIN 30MG/0.3ML SYRINGE (J1650 PER 10MG) SC SCH (21:19)
[2019-11-22 22:00] VITALS: BP 100/62
[2019-11-23 06:00] VITALS: BP 109/68
[2019-11-23 07:07] LABS: BLOOD UREA NITROGEN 5 MG/DL (7-18); CALCIUM LEVEL 8.1 MG/DL (8.8-10.2); CARBON DIOXIDE LEVEL 28 MEQ/L (21-32); CHLORIDE LEVEL 103 MEQ/L (98-107); CREATININE FOR GFR 0.43 MG/DL (0.55-1.30); GLOMERULAR FILTRATION RATE > 60.0 (>32); GLUCOSE, FASTING 93 MG/DL (70-100); SODIUM LEVEL 137 MEQ/L (136-145)
--- NOTE | 2019-11-23 10:56 | IPNPDOC ---
Subjective Date Seen The patient was seen on 11/23/19. Subjective Chief Complaint/HPI No events overnight continues to refuse to take anything by mouth. Discussed with Zeynep and she and her sister OK with feeding tube. Objective Physical Examination General Exam: Positive: Alert, Cooperative, No Acute Distress Eye Exam: Positive: PERRLA, Other Eye Symptoms (watering from the eyes) ENT Exam: Positive: Other ENT (bitemporal wasting. ) Chest Exam: Positive: Diminished (at the bases); Negative: Rales, Rhonchi, Wheezing Heart Exam: Positive: Rate Normal, Murmurs (systolic); Negative: Gallops, Rubs, Other Abdomen Exam: Positive: Normal bowel sounds, Soft, Tenderness (epigastric tenderness), Other (scaphoid) Extremity Exam: Positive: Tenderness, Other (bilateral lymphedema. 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 She was found to have severe hypernatremia, sodium level 167, potassium 2.9. She has had increasing loss of appetite and weight loss, fatigue and weakness for the past 1month, and has gradually been failing with failure to thrive, refusing to eat and drink per [facility] staff. Patient was transferred to [facility] for further management. She was admitted for acute metabolic encephalopathy, failure to thrive. Acute metabolic encephalopathy due to severe hypernatremia now improved. However still refusing to eat or drink . Says that everything tastes bad. She answers simple questions. No oral intake Hypokalemia resolved Oral thrush refusing nystatin fluconazole iv. Dementia with failure to thrive due to poor oral intake. discussed with family about PEG tube. will consult surgery Severe Protein calorie malnutrition As per Daughter lost about 40 to 50 lbs in the past month. Now with bitemporal wasting, wasting of small muscles of hand. 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 However could stand 1 month ago though could not pivot. As per daughter the severe right leg contracture happened over the past month As present bed bound Paroxysmal atrial fibrillation. on digoxin at [place] but here did not get any refusing all meds HR controlled Congestive heart failure, unknown ejection fraction. No fluid overload at present. Peripheral vascular disease. not taking ASA Chronic lymphedema. Chronic kidney disease, stage III. creatinine at baseline Coronary artery disease (CAD). Osteoarthritis/ Degenerative joint disease/ contracture does not complain of pain. Hypertension. here bp not elevated Urinary tract infection. Cx in [place] Klebsiella Here Urine cx VRE on linezolid. GI prophylaxis PPI. Plan/VTE VTE Prophylaxis Ordered?: Yes VS, I&O, 24H, Fishbone Vital Signs/I&O Vital Signs Date Time Temp Pulse Resp B/P (MAP) Pulse Ox O2 Delivery O2 Flow Rate FiO2 11/23/19 06:00 97.2 109 20 109/68 (82) 96 Room Air I&O- Last 24 Hours up to 6 AM 11/23/19 05:59 Intake Total 1120 ml Output Total 1950 ml Balance -830 ml Laboratory Data 24H LABS Laboratory Tests 2 11/23/19 06:24: Anion Gap 6L, Glomerular Filtration Rate > 60.0, Calcium Level 8.1L 11/23/19 07:38: CBC/BMP Laboratory Tests 11/23/19 06:24 Microbiology Microbiology 11/14/19 Urine Culture - Final, Complete Enterococcus Faecium (Vre) 11/13/19 Blood Culture - Final, Complete NO GROWTH AFTER 5 DAYS CORDELL RINCON MD Nov 23, 2019 10:30
[2019-11-23] MEDS: DIGOXIN 0.125 MG TAB PO SCH (11:23)
[2019-11-23] MEDS: ASPIRIN 81 MG ENTERIC TAB PO SCH (11:23)
[2019-11-23] MEDS: D5W/0.45% SODIUM CHLORIDE 1,000 ML IV SCH (11:24)
[2019-11-23] MEDS: LINEZOLID 600 MG in IV 1 EA IV SCH ×2 (11:25→23:57)
[2019-11-23 13:05] LABS: BASO % 0.6 % (0.0-1.0); EOS # 0.3 10^3/uL (0.0-0.5); EOS % 4.6 % (0.0-3.0); HEMATOCRIT 30.3 % (36.0-47.0); HEMOGLOBIN 9.7 g/dl (12.0-15.5); LYMPH # 1.4 10^3/uL (1.5-5.0); MEAN CORPUSCULAR HEMOGLOBIN 28.8 pg (27.0-33.0); MEAN CORPUSCULAR VOLUME 89.9 fl (80.0-96.0); MONO # 0.8 10^3/uL (0.0-0.8); MONO % 10.4 % (0.0-5.0); NEUTROPHILS # 4.6 10^3/uL (1.5-8.5); NEUTROPHILS % 64.1 % (36.0-66.0); PLATELET COUNT, AUTOMATED 134 10^3/uL (150-450); RED BLOOD COUNT 3.37 10^6/uL (4.00-5.40); WHITE BLOOD COUNT 7.2 10^3/uL (4.0-10.0)
[2019-11-23 14:00] VITALS: BP 107/67
--- NOTE | 2019-11-23 17:49 | IPN ---
DATE: 11/14/2019 Patient remains disoriented and altered. Moaning at the bedside. Answers yes or no questions but able to state her name, Luz Elena Herrera. Says that it is 2001 and that she is in [place]. Overnight, patient's sodium level has slightly improved to 158 from peak at 167 at [facility]. No seizure activity. Remains confused. No complaints of headache or changes in vision. Has her eyes clothes. Temperature 96, pulse 75, respiratory rate 18, blood pressure 131/64, 95% on room air. GENERAL: Patient is awake, alert, oriented to person only. Lethargic and disoriented. Face is symmetric. Tongue is midline. Chapped lips. Dry mucous membranes. No jugular venous distention (JVD) or thyromegaly. LUNGS: Clear to auscultation. No wheezing, rales, or rhonchi. HEART: S1, S2, irregularly irregular. ABDOMEN: Soft, nontender, nondistended. Positive bowel sounds. EXTREMITIES: Chronic lymphedema, no erythema or induration. thick plaques right lower extremity, especially on the dorsal aspect of the right foot. No signs of cellulitis or open ulcers. LABORATORY DATA: White count 6.4, hemoglobin 11.8, hematocrit 40, platelet count 168. Sodium 158, potassium 3.2, chloride 121, bicarbonate 32, BUN 29, creatinine 0.59, glucose 88. Urine culture pending. Blood culture pending. ASSESSMENT AND PLAN: An 89-year-old female who lives at [facility], presented to [place] Emergency Room with altered mental status, failure to thrive, decreased oral intake. Was found to be dehydrated with altered mental status due to severe hypernatremia, sodium level 167, and hypokalemia of 2.9. Abnormal urinalysis, treated with ceftriaxone on the emergency room (ER) and transferred to [facility] for further management. ACUTE ISSUES: 1. Acute metabolic encephalopathy due to severe dehydration and hypernatremia, urinary tract infection. 2. Hypernatremia/dehydration due to failure to thrive and decreased fluid intake, hypokalemia. 3. Chronic atrial fibrillation, not on anticoagulation. 4. Urinary tract infection, present on hospital admission. 5. Chronic dementia. 6. Chronic lower extremity edema. 7. Hypertension. 8. Chronic kidney disease (CKD), stage III. PLAN: Patient is currently on normal saline at 200 mL an hour. Monitor for congestive heart failure or fluid overload. Goal sodium as of 10 a. m. this morning should be 148 until next morning. Patient has been supplemented with potassium. Monitor for aspiration and obtain a swallow evaluation today. Patient has not been belligerent or combative and does not require a sitter. At this time she is on IV ceftriaxone for a urinary tract infection present at admission. Deep venous thrombosis (DVT) prophylaxis with Lovenox and continue every 6-hour basic metabolic profile (BMP) checks. MTDD
--- NOTE | 2019-11-23 17:53 | IPN ---
DATE: 11/15/2019 SUBJECTIVE: Patient remains encephalopathic. She continues to have aspiration risk with choking on her orange juice this morning despite having recommendations for pureed and thin liquids. Patient will be reevaluated again today. Patient is lethargic, only able to say her name. PHYSICAL EXAMINATION: VITALS: Temperature 99, pulse 72, respiratory rate 18, blood pressure 125/58, 94% on room air. GENERAL: Awake, alert and oriented to her name only. She appears her stated age. No JVD. No thyromegaly. Dry mucous membranes with chapped lips. Poor dentition. LUNGS: Diminished, crackles. HEART: S1, S2, sinus rhythm. ABDOMEN: Soft, nontender, non-distended. EXTREMITIES: Chronic lymphedema right lower extremity with silver scaling and patchy skin. No signs of cellulitis. LABORATORY DATA: White count 4.9, hemoglobin 10, hematocrit 34, platelet count 129,000. Sodium 157, potassium 3.5, chloride 123, BUN 21, creatinine 0.53, glucose 83. ASSESSMENT AND PLAN: This is an 89-year-old female brought in from the [facility] with altered mental status, found to have severe hypernatremia, dehydration, sodium level 167 at [facility] and transferred to [facility]. Patient has decreased sodium from 167 to 158 currently. She remains an aspiration risk. Current issues: 1. Acute metabolic encephalopathy. 2. Dehydration. 3. Hypernatremia. 4. Electrolyte abnormalities with hypokalemia resolved. 5. Paroxysmal atrial fibrillation. 6. Congestive heart failure; unknown ejection fraction. 7. Peripheral vascular disease, chronic lymphedema of the right lower extremity. 8. Chronic kidney disease stage 3. 9. History of nonsustained VTACH. 10. History of CAD. 11. Osteoarthritis. 12. Hypertension. 13. Urinary tract infection. 14. History of SVT. 15. History of myofascial strain. PLAN: Since the patient's mentation has not improved, CT head will be obtained to rule out CVA. She does have a history of CVA and right-sided spasticity, but in light of the fact that she is altered and has been on no anticoagulation, she is at risk of recurrent stroke. Patient usually takes aspirin 81 mg daily, but has been an aspiration risk. Repeat swallow study will be done today. She is continued on I.V. fluids with every 6 hourly metabolic panel check, and Ceftriaxone for presumed urinary tract infection. MTDD
--- NOTE | 2019-11-23 17:54 | IPN ---
DATE: 11/17/2019 Patient is a little bit more alert today, saying that she would like to have something to drink. She remains on pureed diet due to aspiration risk. Urine culture grew out vancomycin-resistant enterococci (VRE), currently on contact precautions and started on intravenous (IV) Zyvox due to aspiration risk. She remains hypernatremic, still not catching up with her oral intake with failure to thrive. Afebrile overnight. No chills. Temperature 98.2, pulse 70, respiratory rate 20, blood pressure 121/69, 94% on room air. GENERAL: Patient is awake, alert, oriented herself. Dry mucous membranes. Poor dentition. LUNGS: Clear to auscultation. No wheezing or rales. HEART: S1, S2, irregularly irregular. ABDOMEN: Soft, nontender, nondistended. EXTREMITIES: Chronic lymphedema, right lower extremity with plaques on the leg. LABORATORY DATA: White count 5, hemoglobin 11, hematocrit 33, platelet count 114. Admission platelet count of 174. Sodium 147. ASSESSMENT AND PLAN: An 89-year-old female from [facility], brought to [place] Emergency Room (ER) due to altered mental status, found to have severe hydration. CURRENT ISSUES: 1. Hypernatremia/dehydration due to poor oral intake. 2. Failure to thrive. 3. Aspiration risk. 4. Acute metabolic encephalopathy due to severe hydration and hypernatremia. 5. Hypokalemia, resolved. 6. Chronic atrial fibrillation. 7. Acute urinary tract infection with vancomycin-resistant enterococci (VRE). 8. Chronic dementia. 9. Chronic right lower extremity lymphedema. 10. Hypertensive heart disease. 11. Chronic kidney disease (CKD), stage III. PLAN: Patient is continued on IV fluids with pureed diet due to aspiration risk. Due to resistance pattern and susceptibility results of the urine culture, patient is currently on IV Zyvox due to VRE, on contact precautions. [facility]
[2019-11-23] MEDS: FLUCONAZOLE 200 MG in IV 1 EA IV SCH (17:56)
--- NOTE | 2019-11-23 17:57 | IPN ---
DATE: 11/18/2019 SUBJECTIVE: Patient is only a bit more awake. She remains disoriented, still requiring IV fluids and help with her diet. Patient denies any chest pain, pressure, tightness or shortness of breath. No nausea or vomiting. PHYSICAL EXAMINATION: VITAL SIGNS: Temperature 97.2, pulse 86, respiratory rate 18, blood pressure 114/82, 98% on room air. GENERAL: Awake, alert and oriented to herself. HEENT: Dry mucous membranes. Poor dentition. Chapped lips. NECK: No JVD. No thyromegaly. No cervical lymphadenopathy. LUNGS: Diminished. HEART: S1 and S2, irregularly irregular. ABDOMEN: Soft, nontender and nondistended. Positive bowel sounds. No rebound. No guarding. No hepatosplenomegaly. No abdominal bruit. EXTREMITIES: Chronic lymphedema with thick plaque on the right lower extremity, especially dorsal aspect of the right foot. No erythema or induration. No signs of active cellulitis, or opened ulcers. LABORATORY DATA: White count 5.3, hemoglobin 10, hematocrit 34, platelet count 110,000. Sodium 145, potassium 3.5, chloride 109, bicarbonate 30, BUN 6, creatinine 0.58, glucose of 152. Microbiology: VRE resistant, sensitive to gentamicin and Zyvox, Synercid and Tigecycline. ASSESSMENT AND PLAN: An 89-year-old female transferred from [place] [facility] Room due to altered mental status, found to be hypernatremic, sodium of 167, failure to thrive, decreased oral intake and hypokalemia, potassium of 2.9. She was found to have a urinary tract infection, given IV Ceftriaxone but found to have VRE and currently on Zyvox. ACUTE ISSUES: 1. Acute metabolic encephalopathy secondary to urinary tract infection with VRE and severe dehydration with hypernatremia. 2. Severe dehydration. 3. Hypernatremia. 4. Urinary tract infection with VRE and contact precautions. 5. Chronic atrial fibrillation. Abnormal EKG. 6. VRE UTI. 7. Hypokalemia, resolved. 8. Chronic dementia. 9. Chronic lower extremity edema. 10. Hypertensive heart disease. 11. CKD Stage III. 12. Failure to thrive. PLAN: Patient is having difficulty maintaining hydration, currently on a pureed diet. She is requiring IV fluids to be continued as she remains with very decreased oral intake due to altered mental status. Aspiration risk. She is Dariel lift at baseline. Currently on Zyvox for VRE and contact precautions. Continue with sodium monitoring and IV fluids for now. MTDD
--- NOTE | 2019-11-23 18:00 | IPN ---
DATE: 11/19/2019 SUBJECTIVE: The patient is a little bit more alert, still disoriented, still aspiration risks, on pureed diet but no eating per nursing, only eats about 10 to 15% of her food. The patients glucose is improved on IV fluids but still requiring significant help. She requires feeding and constant help with her ADLs. She is able to state her name, confused as to where she is, thinks she is at [place]. PHYSICAL EXAMINATION: VITAL SIGNS: Temperature is 97.8, pulse is 88, respiratory rate 18, blood pressure is 145/90, 98% on room air. GENERAL: Patient is awake, alert and oriented to herself only. Pleasantly confused. HEENT: Dry mucous membranes. NECK: No JVD. No thyromegaly. No cervical lymphadenopathy. LUNGS: Diminished. HEART: S1 and S2, sinus rhythm. ABDOMEN: Soft, nontender and nondistended. EXTREMITIES: Chronic right lower extremity lymphedema with plaques. No erythema. LABORATORY DATA: 11/18/2019 CBC and metabolic panel have been reviewed; 11/19/2019 labs are still pending. ASSESSMENT AND PLAN: 1. An 89-year-old admitted on 11/12 as a transfer from [facility] with complaints of confusion, found to have acute metabolic encephalopathy secondary to severe hypernatremia, sodium of 167. 2. Poor oral intake due to failure to thrive from chronic dementia. 3. Dehydration. 4. Hypernatremia. 5. Hypokalemia, resolved. 6. Chronic A-fib. 7. Acute UTI with VRE. Urine culture at [place] showed Klebsiella. 8. Chronic dementia, chronic right lower extremity lymphedema. 9. Hypertensive heart disease. 10. CKD Stage III. 11. Headache. PLAN: Patient is continued on IV fluids. She is an aspiration risk, she is continued on Zyvox for the VRE, contact precautions, supportive care. ROBIN
--- NOTE | 2019-11-23 18:05 | IPN ---
DATE: 11/16/2019 SUBJECTIVE: The patient continues to be lethargic, responds to her name, able to state her name but does not converse. The patient remains an aspiration risk, currently NPO status, on IV fluids. PHYSICAL EXAMINATION: VITAL SIGNS: Temperature is 97.8, pulse is 66, respiratory rate is 18, blood pressure is 129/62, 96% on room air. GENERAL: The patient is awake, alert and oriented to herself only. NECK: No JVD. No thyromegaly. LUNGS: Diminished breath sounds in the lungs. HEART: S1 and S2, irregular. ABDOMEN: Soft, slightly distended. No rebound or guarding. EXTREMITIES: Chronic edema. Lymphedema on the right with scaling and plaque in the right leg. LABORATORY DATA: 11/16/2019: White count 4.6, hemoglobin 10, hematocrit 36, platelet count 115,000. Admission platelet 174,000. Sodium 151, potassium 3.3, chloride 115, bicarbonate 30, BUN 12, creatinine 0.46, glucose 111, magnesium of 1.4. ASSESSMENT AND PLAN: An 89-year-old female brought in due to altered mental status from [facility] to the Emergency Room found to have a sodium level of 167, potassium 2.9 with acute metabolic encephalopathy. IMPRESSION: 1. Acute metabolic encephalopathy secondary to hypernatremia. 2. Dehydration, hypernatremic due to failure to thrive. 3. Failure to thrive with decreased p.o. intake. 4. Chronic atrial fibrillation. 5. Hypokalemia. 6. Acute urinary tract infection present on hospital admission. 7. Chronic dementia. 8. Chronic right lower extremity lymphedema. 9. Hypertensive heart disease. 10. History of CKD, Stage III. PLAN: Continue with q. 6 hourly metabolic panel check. Currently an aspiration risk, kept on NPO status with hypoglycemic protocol. Due to atrial fibrillation with RVR, the patient was given one dose of Digoxin, currently on Ceftriaxone for UTI, blood cultures remain negative. Due to altered mental status thought to be secondary to dehydration but due to a history of atrial fibrillation CT of head was obtained which was negative. [facility]
--- NOTE | 2019-11-23 18:09 | REP ---
KUB: SINGLE VIEW HISTORY: Rule out ileus. COMPARISON: Pelvic radiograph from 11/05/2013. FINDINGS: The bowel gas pattern is unremarkable. There is no evidence of large or small bowel dilation or obstruction. There are degenerative changes in the lumbar spine. Vascular calcification is observed. No mass or organomegaly is seen. IMPRESSION: Unremarkable bowel gas pattern. MTDD
[2019-11-23] MEDS: ENOXAPARIN 30MG/0.3ML SYRINGE (J1650 PER 10MG) SC SCH (20:32)
[2019-11-23] MEDS: PANTOPRAZOLE 40MG VIAL (C9113 PER 1) IV SCH (20:32)
[2019-11-23 22:00] VITALS: BP 135/94
[2019-11-24 06:00] VITALS: BP 121/68
[2019-11-24 07:29] LABS: BASO # 0.1 10^3/uL (0.0-0.2); BASO % 0.8 % (0.0-1.0); EOS # 0.3 10^3/uL (0.0-0.5); EOS % 4.3 % (0.0-3.0); HEMATOCRIT 29.2 % (36.0-47.0); HEMOGLOBIN 9.6 g/dl (12.0-15.5); LYMPH # 1.7 10^3/uL (1.5-5.0); MEAN CORPUSCULAR HEMOGLOBIN 29.5 pg (27.0-33.0); MEAN CORPUSCULAR HGB CONC 32.9 g/dl (32.0-36.5); MEAN CORPUSCULAR VOLUME 89.8 fl (80.0-96.0); MONO # 0.6 10^3/uL (0.0-0.8); MONO % 9.1 % (0.0-5.0); NEUTROPHILS # 3.8 10^3/uL (1.5-8.5); NEUTROPHILS % 59.5 % (36.0-66.0); PLATELET COUNT, AUTOMATED 157 10^3/uL (150-450); RED BLOOD COUNT 3.25 10^6/uL (4.00-5.40); WHITE BLOOD COUNT 6.3 10^3/uL (4.0-10.0)
[2019-11-24 07:47] LABS: BLOOD UREA NITROGEN 7 MG/DL (7-18); CALCIUM LEVEL 7.9 MG/DL (8.8-10.2); CARBON DIOXIDE LEVEL 29 MEQ/L (21-32); CHLORIDE LEVEL 101 MEQ/L (98-107); CREATININE FOR GFR 0.49 MG/DL (0.55-1.30); GLOMERULAR FILTRATION RATE > 60.0 (>32); GLUCOSE, FASTING 99 MG/DL (70-100); POTASSIUM SERUM 3.8 MEQ/L (3.5-5.1); SODIUM LEVEL 135 MEQ/L (136-145)
[2019-11-24] MEDS: D5W/0.45% SODIUM CHLORIDE 1,000 ML IV SCH (07:57)
[2019-11-24] MEDS: ASPIRIN 81 MG ENTERIC TAB PO SCH (09:00)
[2019-11-24] MEDS: DIGOXIN 0.125 MG TAB PO SCH (09:00)
--- NOTE | 2019-11-24 10:54 | IPNPDOC ---
Subjective Date Seen The patient was seen on 11/24/19. Subjective Chief Complaint/HPI No new events overnight. No oral intake. Objective Physical Examination General Exam: Positive: Alert, Cooperative, No Acute Distress Eye Exam: Positive: PERRLA, Other Eye Symptoms (watering from the eyes) ENT Exam: Positive: Other ENT (bitemporal wasting. ) Chest Exam: Positive: Diminished (at the bases); Negative: Rales, Rhonchi, Wheezing Heart Exam: Positive: Rate Normal, Murmurs (systolic); Negative: Gallops, Rubs, Other Abdomen Exam: Positive: Normal bowel sounds, Soft, Tenderness (epigastric tenderness), Other (scaphoid) Extremity Exam: Positive: Tenderness, Other (bilateral lymphedema. 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 She was found to have severe hypernatremia, sodium level 167, potassium 2.9. She has had increasing loss of appetite and weight loss, fatigue and weakness for the past 1month, and has gradually been failing with failure to thrive, refusing to eat and drink per retirement staff. Patient was transferred to [facility] for further management. She was admitted for acute metabolic encephalopathy, failure to thrive. Acute metabolic encephalopathy due to severe hypernatremia now improved. However still refusing to eat or drink . Says that everything tastes bad. She answers simple questions. No oral intake Hypokalemia resolved Oral thrush refusing nystatin fluconazole iv. Dementia with failure to thrive due to poor oral intake. discussed with family about PEG tube. consulted Dr Orosco Severe Protein calorie malnutrition As per Daughter lost about 40 to 50 lbs in the past month. Now with bitemporal wasting, wasting of small muscles of hand. 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 However could stand 1 month ago though could not pivot. As per daughter the severe right leg contracture happened over the past month As present bed bound Paroxysmal atrial fibrillation. on digoxin at [place] but here did not get any refusing all meds HR controlled Congestive heart failure, unknown ejection fraction. No fluid overload at present. Peripheral vascular disease. not taking ASA Chronic lymphedema. Chronic kidney disease, stage III. creatinine at baseline Coronary artery disease (CAD). Osteoarthritis/ Degenerative joint disease/ contracture does not complain of pain. Hypertension. here bp not elevated Urinary tract infection. Cx in [place] Klebsiella Here Urine cx VRE on linezolid. GI prophylaxis PPI. Plan/VTE VTE Prophylaxis Ordered?: Yes VS, I&O, 24H, Fishbone Vital Signs/I&O Vital Signs Date Time Temp Pulse Resp B/P (MAP) Pulse Ox O2 Delivery O2 Flow Rate FiO2 11/24/19 06:00 97.3 82 20 121/68 (85) 94 Room Air I&O- Last 24 Hours up to 6 AM 11/24/19 06:00 Intake Total 1660 ml Output Total 900 ml Balance 760 ml Laboratory Data 24H LABS Laboratory Tests 2 11/24/19 06:28: Immature Granulocyte % (Auto) 0.3, Neutrophils (%) (Auto) 59.5, Lymphocytes (%) (Auto) 26.0, Monocytes (%) (Auto) 9.1H, Eosinophils (%) (Auto) 4.3H, Basophils (%) (Auto) 0.8, Neutrophils # (Auto) 3.8, Lymphocytes # (Auto) 1.7, Monocytes # (Auto) 0.6, Eosinophils # (Auto) 0.3, Basophils # (Auto) 0.1, Nucleated Red Blood Cells % (auto) 0.0, Anion Gap 5L, Glomerular Filtration Rate > 60.0, Calcium Level 7.9L CBC/BMP Laboratory Tests 11/24/19 06:28 Microbiology Microbiology 11/14/19 Urine Culture - Final, Complete Enterococcus Faecium (Vre) CORDELL RINCON MD Nov 24, 2019 10:54
[2019-11-24 14:00] VITALS: BP 152/78
[2019-11-24] MEDS: FLUCONAZOLE 200 MG in IV 1 EA IV SCH (16:33)
[2019-11-24] MEDS: ENOXAPARIN 30MG/0.3ML SYRINGE (J1650 PER 10MG) SC SCH (20:50)
[2019-11-24] MEDS: PANTOPRAZOLE 40MG VIAL (C9113 PER 1) IV SCH (20:50)
[2019-11-24 22:00] VITALS: BP 120/64
[2019-11-25] MEDS: D5W/0.45% SODIUM CHLORIDE 1,000 ML IV SCH (04:03)
[2019-11-25 06:01] VITALS: BP 138/56
[2019-11-25 06:43] LABS: BASO # 0.1 10^3/uL (0.0-0.2); BASO % 1.1 % (0.0-1.0); EOS # 0.3 10^3/uL (0.0-0.5); EOS % 4.9 % (0.0-3.0); HEMATOCRIT 28.1 % (36.0-47.0); HEMOGLOBIN 9.3 g/dl (12.0-15.5); LYMPH # 1.3 10^3/uL (1.5-5.0); LYMPH % 23.6 % (24.0-44.0); MEAN CORPUSCULAR HEMOGLOBIN 29.2 pg (27.0-33.0); MEAN CORPUSCULAR HGB CONC 33.1 g/dl (32.0-36.5); MEAN CORPUSCULAR VOLUME 88.4 fl (80.0-96.0); MONO # 0.5 10^3/uL (0.0-0.8); MONO % 8.3 % (0.0-5.0); NEUTROPHILS # 3.5 10^3/uL (1.5-8.5); NEUTROPHILS % 61.7 % (36.0-66.0); PLATELET COUNT, AUTOMATED 140 10^3/uL (150-450); RED BLOOD COUNT 3.18 10^6/uL (4.00-5.40); WHITE BLOOD COUNT 5.7 10^3/uL (4.0-10.0)
[2019-11-25 07:10] LABS: BLOOD UREA NITROGEN 5 MG/DL (7-18); CALCIUM LEVEL 7.8 MG/DL (8.8-10.2); CARBON DIOXIDE LEVEL 28 MEQ/L (21-32); CHLORIDE LEVEL 101 MEQ/L (98-107); CREATININE FOR GFR 0.41 MG/DL (0.55-1.30); GLOMERULAR FILTRATION RATE > 60.0 (>32); GLUCOSE, FASTING 96 MG/DL (70-100); POTASSIUM SERUM 3.5 MEQ/L (3.5-5.1); SODIUM LEVEL 136 MEQ/L (136-145)
[2019-11-25] MEDS: ASPIRIN 81 MG ENTERIC TAB PO SCH (09:00)
[2019-11-25] MEDS: DIGOXIN 0.125 MG TAB PO SCH (09:00)
--- NOTE | 2019-11-25 10:52 | IPNPDOC ---
Subjective Date Seen The patient was seen on 11/25/19. Subjective Chief Complaint/HPI Somnolent today. continues to refuse oral intake, planned for PEG tube this week Objective Physical Examination General Exam: Positive: Alert, Cooperative, No Acute Distress Eye Exam: Positive: PERRLA, Other Eye Symptoms (watering from the eyes) ENT Exam: Positive: Other ENT (bitemporal wasting. ) Chest Exam: Positive: Diminished (at the bases); Negative: Rales, Rhonchi, Wheezing Heart Exam: Positive: Rate Normal, Murmurs (systolic); Negative: Gallops, Rubs, Other Abdomen Exam: Positive: Normal bowel sounds, Soft, Tenderness (epigastric tenderness), Other (scaphoid) Extremity Exam: Positive: Tenderness, Other (bilateral lymphedema. 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 She was found to have severe hypernatremia, sodium level 167, potassium 2.9. She has had increasing loss of appetite and weight loss, fatigue and weakness for the past 1month, and has gradually been failing with failure to thrive, refusing to eat and drink per [facility] staff. Patient was transferred to [facility] for further management. She was admitted for acute metabolic en cephalopathy, failure to thrive. Acute metabolic encephalopathy due to severe hypernatremia now improved. However still refusing to eat or drink . Says that everything tastes bad. She answers simple questions. No oral intake Hypokalemia resolved Oral thrush refusing nystatin fluconazole iv. Dementia with failure to thrive due to poor oral intake. discussed with family about PEG tube. consulted Dr Orosco Severe Protein calorie malnutrition As per Daughter lost about 40 to 50 lbs in the past month. Now with bitemporal wasting, wasting of small muscles of hand. 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 However could stand 1 month ago though could not pivot. As per daughter the severe right leg contracture happened over the past month As present bed bound Paroxysmal atrial fibrillation. on digoxin at [place] but here did not get any refusing all meds HR controlled Congestive heart failure, unknown ejection fraction. No fluid overload at present. Peripheral vascular disease. not taking ASA Chronic lymphedema. Chronic kidney disease, stage III. creatinine at baseline Coronary artery disease (CAD). Osteoarthritis/ Degenerative joint disease/ contracture does not complain of pain. Hypertension. here bp not elevated Urinary tract infection. Cx in [place] Klebsiella Here Urine cx VRE on linezolid. GI prophylaxis PPI. Plan/VTE VTE Prophylaxis Ordered?: Yes VS, I&O, 24H, Fishbone Vital Signs/I&O Vital Signs Date Time Temp Pulse Resp B/P (MAP) Pulse Ox O2 Delivery O2 Flow Rate FiO2 11/25/19 06:01 97.8 77 18 138/56 (83) 98 Room Air I&O- Last 24 Hours up to 6 AM 11/25/19 06:59 Intake Total 780 ml Output Total 1300 ml Balance -520 ml Laboratory Data 24H LABS Laboratory Tests 2 11/25/19 06:25: Immature Granulocyte % (Auto) 0.4, Neutrophils (%) (Auto) 61.7, Lymphocytes (%) (Auto) 23.6L, Monocytes (%) (Auto) 8.3H, Eosinophils (%) (Auto) 4.9H, Basophils (%) (Auto) 1.1H, Neutrophils # (Auto) 3.5, Lymphocytes # (Auto) 1.3L, Monocytes # (Auto) 0.5, Eosinophils # (Auto) 0.3, Basophils # (Auto) 0.1, Nucleated Red Blood Cells % (auto) 0.0, Anion Gap 7L, Glomerular Filtration Rate > 60.0, Calcium Level 7.8L CBC/BMP Laboratory Tests 11/25/19 06:25 CORDELL RINCON MD Nov 25, 2019 07:57
[2019-11-25 14:00] VITALS: BP 151/83
[2019-11-25] MEDS: FLUCONAZOLE 200 MG in IV 1 EA IV SCH (18:34)
[2019-11-25] MEDS: PANTOPRAZOLE 40MG VIAL (C9113 PER 1) IV SCH (21:06)
[2019-11-25] MEDS: ENOXAPARIN 30MG/0.3ML SYRINGE (J1650 PER 10MG) SC SCH (21:06)
[2019-11-25 22:00] VITALS: BP 112/83
[2019-11-26] MEDS: D5W/0.45% SODIUM CHLORIDE 1,000 ML IV SCH (05:37)
[2019-11-26 06:00] VITALS: BP 134/86
[2019-11-26 06:06] LABS: BASO % 0.5 % (0.0-1.0); EOS # 0.2 10^3/uL (0.0-0.5); EOS % 3.4 % (0.0-3.0); HEMATOCRIT 28.7 % (36.0-47.0); HEMOGLOBIN 9.6 g/dl (12.0-15.5); LYMPH # 1.2 10^3/uL (1.5-5.0); MEAN CORPUSCULAR HEMOGLOBIN 29.3 pg (27.0-33.0); MEAN CORPUSCULAR HGB CONC 33.4 g/dl (32.0-36.5); MEAN CORPUSCULAR VOLUME 87.5 fl (80.0-96.0); MONO # 0.5 10^3/uL (0.0-0.8); MONO % 8.9 % (0.0-5.0); NEUTROPHILS # 3.6 10^3/uL (1.5-8.5); NEUTROPHILS % 64.7 % (36.0-66.0); PLATELET COUNT, AUTOMATED 173 10^3/uL (150-450); RED BLOOD COUNT 3.28 10^6/uL (4.00-5.40); WHITE BLOOD COUNT 5.6 10^3/uL (4.0-10.0)
[2019-11-26 06:34] LABS: BLOOD UREA NITROGEN 4 MG/DL (7-18); CARBON DIOXIDE LEVEL 27 MEQ/L (21-32); CHLORIDE LEVEL 100 MEQ/L (98-107); CREATININE FOR GFR 0.35 MG/DL (0.55-1.30); GLOMERULAR FILTRATION RATE > 60.0 (>32); GLUCOSE, FASTING 98 MG/DL (70-100); POTASSIUM SERUM 3.1 MEQ/L (3.5-5.1); SODIUM LEVEL 134 MEQ/L (136-145)
[2019-11-26] MEDS ORDERED: POTASSIUM CHLORIDE INJ 40 MEQ in D5W/0.9% SODIUM CHLORIDE 1,000 ML IV SCH (07:45)
[2019-11-26] MEDS: ASPIRIN 81 MG ENTERIC TAB PO SCH (08:44)
[2019-11-26] MEDS: DIGOXIN 0.125 MG TAB PO SCH (08:44)
[2019-11-26] MEDS: KCL 40MEQ IN D5/NS 1000ML 1,000 ML IV SCH (08:44)
[2019-11-26] MEDS ORDERED: ACETAMINOPHEN 650 MG SUPP PR PRN (12:45)
--- NOTE | 2019-11-26 13:01 | IPNPDOC ---
Subjective Date Seen The patient was seen on 11/26/19. Subjective Chief Complaint/HPI Complains of back pain . Refusing to eat says no appetite Objective Physical Examination General Exam: Positive: Alert, Cooperative, No Acute Distress Eye Exam: Positive: PERRLA, Other Eye Symptoms (watering from the eyes) ENT Exam: Positive: Other ENT (bitemporal wasting. ) Chest Exam: Positive: Diminished (at the bases); Negative: Rales, Rhonchi, Wheezing Heart Exam: Positive: Rate Normal, Murmurs (systolic); Negative: Gallops, Rubs, Other Abdomen Exam: Positive: Normal bowel sounds, Soft, Tenderness (epigastric tenderness), Other (scaphoid) Extremity Exam: Positive: Tenderness, Other (bilateral lymphedema. 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 She was found to have severe hypernatremia, sodium level 167, potassium 2.9. She has had increasing loss of appetite and weight loss, fatigue and weakness for the past 1month, and has gradually been failing with failure to thrive, refusing to eat and drink per [facility] staff. Patient was transferred to [facility] for further management. She was admitted for acute metabolic encephalopathy, failure to thrive. Acute metabolic encephalopathy on the back ground of dementia. due to severe hypernatremia now improved. However still refusing to eat or drink . Says that everything tastes bad. She answers simple questions. No oral intake Hypokalemia resolved Oral thrush refusing nystatin fluconazole iv. Dementia with failure to thrive due to poor oral intake. discussed with family about PEG tube. consulted Dr Orosco, Awaiting PEG tube placement. Severe Protein calorie malnutrition As per Daughter lost about 40 to 50 lbs in the past month. Now with bitemporal wasting, wasting of small muscles of hand. follow dietary recommendations for PEG tube feeding. RECOMMEND: -Jevity 1.5 @40ml/hr continuous -free water flush with 155ml Q4hr (will provide additional 930ml H2O) *will provide 960ml total formula volume, 1440kcal, 61g prot, 1660ml H2O; meeting 100% nutrition needs. Tolerance of enteral feeding AEB no s/sx GI distress, residuals <500ml, no s/sx refeeding syndrome. 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 However could stand 1 month ago though could not pivot. As per daughter the severe right leg contracture happened over the past month As present bed bound Paroxysmal atrial fibrillation. on digoxin at [place] but here did not get any refusing all meds HR controlled Congestive heart failure, unknown ejection fraction. No fluid overload at present. Peripheral vascular disease. not taking ASA Chronic lymphedema. Chronic kidney disease, stage III. creatinine at baseline Coronary artery disease (CAD). Osteoarthritis/ Degenerative joint disease/ contracture does not complain of pain. Hypertension. here bp not elevated Urinary tract infection. Cx in [place] Klebsiella Here Urine cx VRE on linezolid. GI prophylaxis PPI. Plan/VTE VTE Prophylaxis Ordered?: Yes VS, I&O, 24H, Fishbone Vital Signs/I&O Vital Signs Date Time Temp Pulse Resp B/P (MAP) Pulse Ox O2 Delivery O2 Flow Rate FiO2 11/26/19 06:00 97.0 105 20 134/86 (102) 97 Room Air I&O- Last 24 Hours up to 6 AM 11/26/19 07:00 Intake Total 960 ml Output Total 600 ml Balance 360 ml Laboratory Data 24H LABS Laboratory Tests 2 11/26/19 05:39: Immature Granulocyte % (Auto) 0.5, Neutrophils (%) (Auto) 64.7, Lymphocytes (%) (Auto) 22.0L, Monocytes (%) (Auto) 8.9H, Eosinophils (%) (Auto) 3.4H, Basophils (%) (Auto) 0.5, Neutrophils # (Auto) 3.6, Lymphocytes # (Auto) 1.2L, Monocytes # (Auto) 0.5, Eosinophils # (Auto) 0.2, Basophils # (Auto) 0.0, Nucleated Red Blood Cells % (auto) 0.0, Anion Gap 7L, Glomerular Filtration Rate > 60.0, Nemesio cium Level 8.0L CBC/BMP Laboratory Tests 11/26/19 05:39 CORDELL RINCON MD Nov 26, 2019 08:15
[2019-11-26 14:07] VITALS: BP 136/90
[2019-11-26] MEDS: FLUCONAZOLE 200 MG in IV 1 EA IV SCH (17:15)
[2019-11-26] MEDS: PANTOPRAZOLE 40MG VIAL (C9113 PER 1) IV SCH (20:06)
[2019-11-26] MEDS: ENOXAPARIN 30MG/0.3ML SYRINGE (J1650 PER 10MG) SC SCH (20:06)
[2019-11-26 22:00] VITALS: BP 148/60
[2019-11-27] MEDS: KCL 40MEQ IN D5/NS 1000ML 1,000 ML IV SCH (03:08)
[2019-11-27 06:00] VITALS: BP 137/93
[2019-11-27 06:12] LABS: BASO # 0.1 10^3/uL (0.0-0.2); BASO % 1.3 % (0.0-1.0); EOS # 0.1 10^3/uL (0.0-0.5); HEMATOCRIT 27.3 % (36.0-47.0); LYMPH # 1.4 10^3/uL (1.5-5.0); LYMPH % 28.5 % (24.0-44.0); MEAN CORPUSCULAR VOLUME 88.1 fl (80.0-96.0); MONO # 0.5 10^3/uL (0.0-0.8); MONO % 9.7 % (0.0-5.0); NEUTROPHILS # 2.7 10^3/uL (1.5-8.5); NEUTROPHILS % 57.1 % (36.0-66.0); PLATELET COUNT, AUTOMATED 180 10^3/uL (150-450); WHITE BLOOD COUNT 4.7 10^3/uL (4.0-10.0)
[2019-11-27 06:37] LABS: BLOOD UREA NITROGEN 4 MG/DL (7-18); CALCIUM LEVEL 7.8 MG/DL (8.8-10.2); CARBON DIOXIDE LEVEL 27 MEQ/L (21-32); CHLORIDE LEVEL 104 MEQ/L (98-107); CREATININE FOR GFR 0.39 MG/DL (0.55-1.30); GLOMERULAR FILTRATION RATE > 60.0 (>32); GLUCOSE, FASTING 105 MG/DL (70-100); POTASSIUM SERUM 3.8 MEQ/L (3.5-5.1); SODIUM LEVEL 137 MEQ/L (136-145)
[2019-11-27] MEDS: DIGOXIN 0.125 MG TAB PO SCH (09:00)
[2019-11-27] MEDS: ASPIRIN 81 MG ENTERIC TAB PO SCH (09:00)
[2019-11-27 12:40] VITALS: BP 136/70
--- NOTE | 2019-11-27 13:23 | IPNPDOC ---
Text Note Date of Service The patient was seen on 11/27/19. NOTE Subjective: Pt answers simple questions. Denies pain. No appetite. refuses to eat. Objective: Vitals: (see below) General: No acute distress, laying comfortably in bed. frail appearing HEENT: Dry mucous membranes. Neck: No JVD or lymphadenopathy Cardiac: RRR, No murmurs Pulm: Clear to auscultation b/l. No wheezing, rhonchi Abd: NT/ND + BS Ext: No edema or cyanosis Labs (see below) Assessment/Plan Acute metabolic encephalopathy on the back ground of dementia. due to severe hypernatremia now improved. However still refusing to eat or drink . Says that everything tastes bad. She answers simple questions. No oral intake Hypokalemia resolved Oral thrush refusing nystatin fluconazole iv. Dementia with failure to thrive due to poor oral intake. discussed with family about PEG tube. consulted Dr Orosco, Awaiting PEG tube placement. Severe Protein calorie malnutrition As per Daughter lost about 40 to 50 lbs in the past month. Now with bitemporal wasting, wasting of small muscles of hand. follow dietary recommendations for PEG tube feeding. RECOMMEND: -Jevity 1.5 @40ml/hr continuous -free water flush with 155ml Q4hr (will provide additional 930ml H2O) *will provide 960ml total formula volume, 1440kcal, 61g prot, 1660ml H2O; meeting 100% nutrition needs. Tolerance of enteral feeding AEB no s/sx GI distress, residuals <500ml, no s/sx refeeding syndrome. 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 However could stand 1 month ago though could not pivot. As per daughter the severe right leg contracture happened over the past month As present bed bound Paroxysmal atrial fibrillation. on digoxin at [facility] but here did not get any refusing all meds Metoprolol IV PRN pending PEG Congestive heart failure, unknown ejection fraction. No fluid overload at present. Peripheral vascular disease. not taking ASA Chronic lymphedema. Chronic kidney disease, stage III. creatinine at baseline Coronary artery disease (CAD). Osteoarthritis/ Degenerative joint disease/ contracture does not complain of pain. Hypertension. here bp not elevated Urinary tract infection. Cx in [place] Klebsiella Here Urine cx VRE on linezolid. GI prophylaxis PPI. Overall prognosis guarded. VS,Fishbone, I+O VS, Fishbone, I+O Laboratory Tests 11/27/19 05:37 Vital Signs Date Time Temp Pulse Resp B/P (MAP) Pulse Ox O2 Delivery O2 Flow Rate FiO2 11/27/19 12:40 98.7 77 20 136/70 (92) 98 Room Air I&O- Last 24 Hours up to 6 AM 11/27/19 06:00 Intake Total 1270 ml Output Total 925 ml Balance 345 ml DAVID CONKLIN MD Nov 27, 2019 13:23
[2019-11-27] MEDS: METOPROLOL 5 MG/5 ML VIAL IV SCH ×2 (14:36→17:49)
[2019-11-27 16:00] VITALS: BP 152/84
[2019-11-27] MEDS: FLUCONAZOLE 200 MG in IV 1 EA IV SCH (17:46)
[2019-11-27 20:00] VITALS: BP 123/73
[2019-11-27] MEDS: PANTOPRAZOLE 40MG VIAL (C9113 PER 1) IV SCH (21:18)
[2019-11-27] MEDS: ENOXAPARIN 30MG/0.3ML SYRINGE (J1650 PER 10MG) SC SCH (21:18)
[2019-11-27] MEDS: diltiaZEM 125 MG in NS 100 ML IV SCH (21:18)
[2019-11-28] VITALS: BP 128/83
[2019-11-28] MEDS: KCL 40MEQ IN D5/NS 1000ML 1,000 ML IV SCH ×2 (00:19→19:01)
[2019-11-28 04:00] VITALS: BP 144/74
[2019-11-28 07:42] LABS: HEMATOCRIT 26.5 % (36.0-47.0); HEMOGLOBIN 8.7 g/dl (12.0-15.5); MEAN CORPUSCULAR HEMOGLOBIN 29.3 pg (27.0-33.0); MEAN CORPUSCULAR HGB CONC 32.8 g/dl (32.0-36.5); MEAN CORPUSCULAR VOLUME 89.2 fl (80.0-96.0); PLATELET COUNT, AUTOMATED 195 10^3/uL (150-450); RED BLOOD COUNT 2.97 10^6/uL (4.00-5.40); WHITE BLOOD COUNT 5.3 10^3/uL (4.0-10.0)
[2019-11-28 08:00] VITALS: BP 138/63
[2019-11-28] MEDS ORDERED: NS 500 ML IV ONE (08:00)
[2019-11-28] MEDS ORDERED: DIGOXIN INJ 0.5 MG/2 ML AMP (J1160) IV ONE (08:00)
[2019-11-28 08:48] LABS: BLOOD UREA NITROGEN 4 MG/DL (7-18); CALCIUM LEVEL 7.8 MG/DL (8.8-10.2); CARBON DIOXIDE LEVEL 26 MEQ/L (21-32); CHLORIDE LEVEL 108 MEQ/L (98-107); CREATININE FOR GFR 0.45 MG/DL (0.55-1.30); GLOMERULAR FILTRATION RATE > 60.0 (>32); GLUCOSE, FASTING 117 MG/DL (70-100); POTASSIUM SERUM 4.2 MEQ/L (3.5-5.1); SODIUM LEVEL 139 MEQ/L (136-145); TROPONIN I 0.02 NG/ML (< 0.10)
[2019-11-28] MEDS: ASPIRIN 81 MG ENTERIC TAB PO SCH (10:07)
[2019-11-28 12:00] VITALS: BP 145/61
--- NOTE | 2019-11-28 13:57 | IPNPDOC ---
Text Note Date of Service The patient was seen on 11/28/19. NOTE Subjective: Pt answers simple questions. Denies any complaints. No acute changes overnight. Objective: Vitals: (see below) General: No acute distress, laying comfortably in bed. frail appearing HEENT: Dry mucous membranes. Neck: No JVD or lymphadenopathy Cardiac: Irregularly irregular. No murmurs Pulm: Clear to auscultation b/l. No wheezing, rhonchi Abd: NT/ND + BS Ext: No edema or cyanosis Labs (see below) Assessment/Plan AF RVR - pt had not received her digoxin when npo. - placed on cardizem drip. received 1 dose iv digoxin - hemodynamically stable. Severe Protein calorie malnutrition As per Daughter lost about 40 to 50 lbs in the past month. Now with bitemporal wasting, wasting of small muscles of hand. follow dietary recommendations for PEG tube feeding. RECOMMEND: -Jevity 1.5 @40ml/hr continuous -free water flush with 155ml Q4hr (will provide additional 930ml H2O) *will provide 960ml total formula volume, 1440kcal, 61g prot, 1660ml H2O; meeting 100% nutrition needs. Tolerance of enteral feeding AEB no s/sx GI distress, residuals <500ml, no s/sx refeeding syndrome. - Discussed with Dr. Orosco who will place pt on the schedule soon for PEG as HR is better controlled. Acute metabolic encephalopathy on the back ground of dementia. due to severe hypernatremia now improved. However still refusing to eat or drink . Says that everything tastes bad. She answers simple questions. No oral intake Hypokalemia resolved Oral thrush refusing nystatin fluconazole iv. Dementia with failure to thrive due to poor oral intake. discussed with family about PEG tube. consulted Dr Orosco, Awaiting PEG tube placement. 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 However could stand 1 month ago though could not pivot. As per daughter the severe right leg contracture happened over the past month As present bed bound Congestive heart failure, unknown ejection fraction. No fluid overload at present. Peripheral vascular disease. not taking ASA Chronic lymphedema. Chronic kidney disease, stage III. creatinine at baseline Coronary artery disease (CAD). Osteoarthritis/ Degenerative joint disease/ contracture does not complain of pain. Hypertension. here bp not elevated Urinary tract infection. Cx in [place] Klebsiella Here Urine cx VRE on linezolid. GI prophylaxis PPI. Overall prognosis guarded. Pending PEG prior to d/c. VS,Fishbone, I+O VS, Fishbone, I+O Laboratory Tests 11/28/19 07:31 Vital Signs Date Time Temp Pulse Resp B/P (MAP) Pulse Ox O2 Delivery O2 Flow Rate FiO2 11/28/19 12:00 97.6 65 16 145/61 (89) 98 Room Air I&O- Last 24 Hours up to 6 AM 11/28/19 06:00 Intake Total 0 ml Output Total 950 ml Balance -950 ml DAVID CONKLIN MD Nov 28, 2019 13:57
[2019-11-28 16:00] VITALS: BP 137/63
[2019-11-28] MEDS: diltiaZEM 125 MG in NS 100 ML IV SCH (17:16)
[2019-11-28] MEDS: FLUCONAZOLE 200 MG in IV 1 EA IV SCH (17:16)
[2019-11-28] MEDS: METOPROLOL 5 MG/5 ML VIAL IV SCH (18:00)
[2019-11-28 20:00] VITALS: BP 134/75
[2019-11-28] MEDS: PANTOPRAZOLE 40MG VIAL (C9113 PER 1) IV SCH (21:35)
[2019-11-28] MEDS: ENOXAPARIN 30MG/0.3ML SYRINGE (J1650 PER 10MG) SC SCH (21:36)
[2019-11-29] VITALS (10 sets, daily range): BP systolic 125–175; BP diastolic 68–84
[2019-11-29] MEDS: METOPROLOL 5 MG/5 ML VIAL IV SCH ×4 (05:09→18:00)
[2019-11-29 05:57] LABS: ALBUMIN 1.9 GM/DL (3.2-5.2); ALT/SGPT 19 U/L (12-78); BILIRUBIN,TOTAL 0.6 MG/DL (0.2-1.0); BLOOD UREA NITROGEN 3 MG/DL (7-18); CALCIUM LEVEL 7.9 MG/DL (8.8-10.2); CARBON DIOXIDE LEVEL 25 MEQ/L (21-32); CHLORIDE LEVEL 107 MEQ/L (98-107); CREATININE FOR GFR 0.34 MG/DL (0.55-1.30); GLOMERULAR FILTRATION RATE > 60.0 (>32); GLUCOSE, FASTING 88 MG/DL (70-100); MAGNESIUM LEVEL 1.6 MG/DL (1.8-2.4); POTASSIUM SERUM 3.9 MEQ/L (3.5-5.1); SODIUM LEVEL 138 MEQ/L (136-145); TOTAL PROTEIN 5.3 GM/DL (6.4-8.2)
[2019-11-29 07:43] LABS: BASO # 0.1 10^3/uL (0.0-0.2); EOS # 0.2 10^3/uL (0.0-0.5); EOS % 3.1 % (0.0-3.0); HEMATOCRIT 27.1 % (36.0-47.0); HEMOGLOBIN 8.8 g/dl (12.0-15.5); LYMPH # 1.4 10^3/uL (1.5-5.0); LYMPH % 26.5 % (24.0-44.0); MEAN CORPUSCULAR HEMOGLOBIN 28.9 pg (27.0-33.0); MEAN CORPUSCULAR HGB CONC 32.5 g/dl (32.0-36.5); MEAN CORPUSCULAR VOLUME 89.1 fl (80.0-96.0); MONO # 0.6 10^3/uL (0.0-0.8); MONO % 11.6 % (0.0-5.0); NEUTROPHILS # 2.9 10^3/uL (1.5-8.5); NEUTROPHILS % 57.2 % (36.0-66.0); PLATELET COUNT, AUTOMATED 179 10^3/uL (150-450); RED BLOOD COUNT 3.04 10^6/uL (4.00-5.40); WHITE BLOOD COUNT 5.1 10^3/uL (4.0-10.0)
--- NOTE | 2019-11-29 08:49 | IPNPDOC ---
Text Note Date of Service The patient was seen on 11/29/19. NOTE Subjective: Pt answers simple questions. . No acute changes overnight. HR be tter controlled. Off cardizem drip. Objective: Vitals: (see below) General: No acute distress, laying comfortably in bed. frail appearing HEENT: Dry mucous membranes. Neck: No JVD or lymphadenopathy Cardiac: Irregularly irregular. No murmurs Pulm: Clear to auscultation b/l. No wheezing, rhonchi Abd: NT/ND + BS Ext: No edema or cyanosis Labs (see below) Assessment/Plan AF RVR - pt had not received her digoxin when npo. -s/p cardizem drip. received 1 dose iv digoxin - hemodynamically stable. Severe Protein calorie malnutrition As per Daughter lost about 40 to 50 lbs in the past month. Now with bitemporal wasting, wasting of small muscles of hand. follow dietary recommendations for PEG tube feeding. RECOMMEND: -Jevity 1.5 @40ml/hr continuous -free water flush with 155ml Q4hr (will provide additional 930ml H2O) *will provide 960ml total formula volume, 1440kcal, 61g prot, 1660ml H2O; meeting 100% nutrition needs. Tolerance of enteral feeding AEB no s/sx GI distress, residuals <500ml, no s/sx refeeding syndrome. - Discussed with daughter- states she would like feeding tube at this time. If no significant improvement after pt gets appropriate nutrition, she will reconsider goals of care. - Discussed with Dr. Orosco who will place pt on the schedule soon for PEG as HR is better controlled. Acute metabolic encephalopathy on the back ground of dementia. due to severe hypernatremia now improved. However still refusing to eat or drink . Says that everything tastes bad. She answers simple questions. No oral intake Hypokalemia resolved Oral thrush refusing nystatin fluconazole iv. Dementia with failure to thrive due to poor oral intake. discussed with family about PEG tube. consulted Dr Orosco, Awaiting PEG tube placement. 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 However could stand 1 month ago though could not pivot. As per daughter the severe right leg contracture happened over the past month As present bed bound Congestive heart failure, unknown ejection fraction. No fluid overload at present. Peripheral vascular disease. not taking ASA Chronic lymphedema. Chronic kidney disease, stage III. creatinine at baseline Coronary artery disease (CAD). Osteoarthritis/ Degenerative joint disease/ contracture does not complain of pain. Hypertension. here bp not elevated Urinary tract infection. Cx in [place] Klebsiella Here Urine cx VRE on linezolid. GI prophylaxis PPI. Overall prognosis guarded. Pending PEG prior to d/c. Discussed with Dr. Orosco; plan for PEG today. VS,Fishbone, I+O VS, Fishbone, I+O Laboratory Tests 11/29/19 04:53 11/29/19 06:58 Vital Signs Date Time Temp Pulse Resp B/P (MAP) Pulse Ox O2 Delivery O2 Flow Rate FiO2 11/29/19 08:00 97.9 68 24 175/76 (109) 95 Room Air I&O- Last 24 Hours up to 6 AM 11/29/19 06:00 Intake Total 1170 ml Output Total 1550 ml Balance -380 ml DAVID CONKLIN MD Nov 29, 2019 08:49
[2019-11-29] MEDS: DIGOXIN 0.125 MG TAB PO SCH (09:00)
[2019-11-29] MEDS: ASPIRIN 81 MG ENTERIC TAB PO SCH (09:00)
[2019-11-29] MEDS ORDERED: LIDOCAINE 2% 100MG/5ML SDV (FOR ANES.) As Ordered ONE (15:51)
[2019-11-29] MEDS ORDERED: propofoL 200 MG/20 ML VIAL As Ordered ONE (15:51)
[2019-11-29] MEDS ORDERED: ceFAZolin 2 GM/D5W 50 ML IV BAG (J0690 PER 500MG) As Ordered ONE (16:20)
[2019-11-29] MEDS ORDERED: METOPROLOL 5 MG/5 ML VIAL As Ordered ONE (16:23)
[2019-11-29] MEDS ORDERED: PHENYLephrine HCL 500 MCG/5 ML (100MCG/ML) SYRINGE (J2370) As Ordered ONE (16:41)
[2019-11-29] MEDS ORDERED: LIDOCAINE 1% MDV 20ML VIAL IM ONE (16:56)
[2019-11-29] MEDS ORDERED: ACETAMINOPHEN 325 MG/10.15 ML UDC GT PRN (17:15)
[2019-11-29] MEDS ORDERED: ACETAMINOPHEN/CODEINE 300MG/30MG 12.5 ML UDC PEG PRN (17:15)
[2019-11-29] MEDS ORDERED: LR 1,000 ML IV SCH (17:30)
[2019-11-29] MEDS ORDERED: ONDANSETRON 4MG/2ML VIAL IV PRN (17:30)
--- NOTE | 2019-11-29 17:44 | ROOR ---
Patient Name: Luz Elena Gallo Procedure Date: 11/29/2019 4:01 PM Date of : 1930 Age: 89 Room: Main OR Gender: Female Note Status: Finalized Procedure: Upper GI endoscopy Indications: Place PEG because patient is unable to eat Providers: Lasha Orosco MD Referring MD: 2. Inpatient 2. Inpatient Requesting Provider: Medicines: Monitored Anesthesia Care Complications: No immediate complications. Procedure: Pre-Anesthesia Assessment: - Prior to the procedure, a History and Physical was performed, and patient medications and allergies were reviewed. The patient is unable to give consent secondary to the patient being legally incompetent to consent. The risks and benefits of the procedure and the sedation options and risks were discussed with the patient's daughter. All questions were answered and informed consent was obtained. Patient identification and proposed procedure were verified by the physician, the nurse and the anesthesiologist in the procedure room. ASA Grade Assessment: IV - A patient with severe systemic disease that is a constant threat to life. After reviewing the risks and benefits, the patient was deemed in satisfactory condition to undergo the procedure. The anesthesia plan was to use monitored anesthesia care (MAC). Immediately prior to administration of medications, the patient was re-assessed for adequacy to receive sedatives. The heart rate, respiratory rate, oxygen saturations, blood pressure, adequacy of pulmonary ventilation, and response to care were monitored throughout the procedure. The physical status of the patient was re-assessed after the procedure. The Endoscope was introduced through the mouth, and advanced to the second part of duodenum. The upper GI endoscopy was accomplished without difficulty. The patient tolerated the procedure well. Findings: The examined esophagus was normal. The entire examined stomach was normal. The examined duodenum was normal. The entire examined stomach was normal. The patient was placed in the supine position for PEG placement. The stomach was insufflated to appose gastric and abdominal gibbons. A site was located in the body of the stomach with excellent transillumination and manual external pressure for placement. The abdominal wall was marked and prepped in a sterile manner. The area was anesthetized with 5 mL of 1% lidocaine. The trocar needle was introduced through the abdominal wall and into the stomach under direct endoscopic view. A snare was introduced through the endoscope and opened in the gastric lumen. The guide wire was passed through the trocar and into the open snare. The snare was closed around the guide wire. The endoscope and snare were removed, pulling the wire out through the mouth. A skin incision was made at the site of needle insertion. The externally removable 20 Fr Bard gastrostomy tube was lubricated. The G-tube was passed over the guide wire through the mouth, and into the stomach. The trocar needle was removed, and the gastrostomy tube was pulled out from the stomach through the skin. The guide wire was removed, and the external bumper attached to the gastrostomy tube. The feeding tube was then cut to an appropriate length. The final position of the gastrostomy tube was confirmed by relook endoscopy, and skin marking noted to be 2 cm at the external bumper. The final tension and compression of the abdominal wall by the PEG tube and external bumper were checked and revealed that the bumper was loose and not touching the skin and that the PEG balloon was loose and lightly touching the stomach. The feeding tube was capped, and the tube site was cleaned and dressed. Impression: - Normal esophagus. - Normal stomach. - Normal examined duodenum. - Normal stomach. - An externally removable PEG placement was successfully completed. - No specimens collected. Recommendation: - [facility]. Lasha Orosco MD Lasha Orosco MD 11/29/2019 5:43:11 PM Electronically signed by Lasha Orosco MD Number of Addenda: 0 Note Initiated On: 11/29/2019 4:01 PM Estimated Blood Loss: Estimated blood loss was minimal.
[2019-11-29] MEDS ORDERED: D5W/0.9% SODIUM CHLORIDE 1,000 ML IV SCH (18:00)
[2019-11-29] MEDS: FLUCONAZOLE 200 MG in IV 1 EA IV SCH (18:02)
[2019-11-29] MEDS: PANTOPRAZOLE 40MG VIAL (C9113 PER 1) IV SCH (21:01)
[2019-11-30] VITALS: BP 99/57
[2019-11-30 04:00] VITALS: BP 124/88
[2019-11-30] MEDS: METOPROLOL 5 MG/5 ML VIAL IV SCH ×3 (04:16→11:53)
[2019-11-30 05:56] LABS: BASO # 0.1 10^3/uL (0.0-0.2); BASO % 0.6 % (0.0-1.0); EOS # 0.1 10^3/uL (0.0-0.5); HEMATOCRIT 28.9 % (36.0-47.0); HEMOGLOBIN 9.5 g/dl (12.0-15.5); LYMPH # 1.1 10^3/uL (1.5-5.0); LYMPH % 10.3 % (24.0-44.0); MEAN CORPUSCULAR HEMOGLOBIN 29.4 pg (27.0-33.0); MEAN CORPUSCULAR HGB CONC 32.9 g/dl (32.0-36.5); MEAN CORPUSCULAR VOLUME 89.5 fl (80.0-96.0); MONO # 0.8 10^3/uL (0.0-0.8); MONO % 7.8 % (0.0-5.0); NEUTROPHILS # 8.2 10^3/uL (1.5-8.5); NEUTROPHILS % 79.4 % (36.0-66.0); PLATELET COUNT, AUTOMATED 147 10^3/uL (150-450); RED BLOOD COUNT 3.23 10^6/uL (4.00-5.40); WHITE BLOOD COUNT 10.3 10^3/uL (4.0-10.0)
[2019-11-30 06:15] LABS: ALBUMIN 1.9 GM/DL (3.2-5.2); ALT/SGPT 15 U/L (12-78); BILIRUBIN,TOTAL 0.7 MG/DL (0.2-1.0); BLOOD UREA NITROGEN 4 MG/DL (7-18); CALCIUM LEVEL 7.5 MG/DL (8.8-10.2); CARBON DIOXIDE LEVEL 21 MEQ/L (21-32); CHLORIDE LEVEL 104 MEQ/L (98-107); CREATININE FOR GFR 0.36 MG/DL (0.55-1.30); GLOMERULAR FILTRATION RATE > 60.0 (>32); GLUCOSE, FASTING 111 MG/DL (70-100); MAGNESIUM LEVEL 1.4 MG/DL (1.8-2.4); POTASSIUM SERUM 3.5 MEQ/L (3.5-5.1); SODIUM LEVEL 136 MEQ/L (136-145); TOTAL PROTEIN 5.4 GM/DL (6.4-8.2)
[2019-11-30 08:00] VITALS: BP 132/76
[2019-11-30] MEDS ORDERED: MAG SULF 1GM/100ML (MAG RUN) 1 GM in IV 1 EA IV ONE (08:00)
[2019-11-30] MEDS ORDERED: DIGOXIN INJ 0.5 MG/2 ML AMP (J1160) IV ONE (08:30)
[2019-11-30] MEDS: DIGOXIN 0.125 MG TAB PO SCH (08:44)
[2019-11-30] MEDS ORDERED: ENOXAPARIN 30MG/0.3ML SYRINGE (J1650 PER 10MG) SC SCH (09:00)
[2019-11-30] MEDS ORDERED: ASPIRIN 81 MG CHEW TABLET PEG SCH (09:00)
[2019-11-30 09:48] LABS: CK-MB VALUE MASS 3.8 NG/ML (<3.6); CPK CREATINE PHOSPHOKINASE 56 U/L (26-192); MB/CK RELATIVE INDEX 6.79 (< OR =4); TROPONIN I < 0.02 NG/ML (< 0.10)
[2019-11-30 12:00] VITALS: BP 117/68
[2019-11-30] MEDS ORDERED: METOPROLOL 5 MG/5 ML VIAL IV PRN (12:00)
[2019-11-30] MEDS ORDERED: METOPROLOL TART 12.5 MG PER 1/2 TAB PEG SCH (12:00)
[2019-11-30 12:22] VITALS: BP 112/60
[2019-11-30] MEDS ORDERED: SLF 3 ML SYR IV PRN (13:00)
[2019-11-30] MEDS ORDERED: METO1TAB7 PO (13:20)
--- NOTE | 2019-11-30 13:39 | DS.PDOC ---
Discharge Summary General Date of Admission Nov 13, 2019 at 16:52 Date of Discharge 11/30/19 Attending Physician: DAVID CONKLIN MD Discharge Summary PROCEDURES PERFORMED DURING STAY: PEG ADMITTING/DISCHARGE DIAGNOSES: 1. AF RVR; HR now controlled 2. Severe Protein calorie malnutrition 3. Acute metabolic encephalopathy on the back ground of dementia. due to severe hypernatremia and UTI; resolved 4. Severe Dementia 5. 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 Congestive heart failure, unknown ejection fraction. 7. Peripheral vascular disease. 8. Chronic lymphedema. 9. Chronic kidney disease, stage III. 10. Coronary artery disease (CAD). 11. Hypertension. 12. Urinary tract infection.. COMPLICATIONS/CHIEF COMPLAINT:AMS HISTORY OF PRESENT ILLNESS/HOSPITAL COURSE: As per medical records; This is an 89-year-old female who has a history of paroxysmal atrial fibrillation, on chronic digoxin, congestive heart failure, peripheral vascular disease, chronic lymphedema who was brought into the [facility] Emergency Room due to altered mental status and decreased oral intake. She was found to have severe hypernatremia, sodium level 167, potassium 2.9. Patient had a history of cerebrovascular accident (CVA) with chronic right-sided spasticity but had normal speech at [place]. She has had increasing loss of appetite and weight loss, fatigue and weakness for the past 1month, and has gradually been failing with failure to thrive, refusing to eat and drink per [facility] staff. Patient was transferred to [facility] for further management. Workup at [place] included electrocardiogram, which shows atrial fibrillation, rate of 78, with nonspecific ST-T wave changes.Chest x-ray was normal. CT of the head had no acute disease. White count, hemoglobin, and platelets were all within normal limits. Creatinine was 0.6. Liver function tests were unremarkable. Pt was found to have severe hypernatremia and AMS on her baseline severe dementia and limited interaction. Over course of hospitalization pt has refused to eat and her daughter subsequently requested a feeding tube; PEG placed 11/28. Pt is now hemodynamically stable. TF started and should gradually be increased per dietary to prevent refeeding syndrome. Pt juancarlos be d/c to [facility] and is to return to ED if symptoms recur/worsen. AF RVR - HR better controlled. - on Digoxin/BB Severe Protein calorie malnutrition As per Daughter lost about 40 to 50 lbs in the past month. Now with bitemporal wasting, wasting of small muscles of hand. follow dietary recommendations for PEG tube feeding. RECOMMEND: -Jevity 1.5 @40ml/hr continuous -free water flush with 155ml Q4hr (will provide additional 930ml H2O) *will provide 960ml total formula volume, 1440kcal, 61g prot, 1660ml H2O; meeting 100% nutrition needs. Tolerance of enteral feeding AEB no s/sx GI distress, residuals <500ml, no s/sx refeeding syndrome. - Discussed with daughter- states she would like feeding tube at this time. If no significant improvement after pt gets appropriate nutrition, she will reconsider goals of care. - s/p PEG 11/28 Acute metabolic encephalopathy on the back ground of dementia. due to severe hypernatremia now improved. However still refusing to eat or drink . Says that everything tastes bad. She answers simple questions. No oral intake Hypokalemia resolved Oral thrush refusing nystatin s/p fluconazole iv. Dementia with failure to thrive due to poor oral intake. discussed with family about PEG tube. consulted Dr Orosco, Awaiting PEG tube placement. 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 However could stand 1 month ago though could not pivot. As per daughter the severe right leg contracture happened over the past month As present bed bound Congestive heart failure, unknown ejection fraction. No fluid overload at present. Peripheral vascular disease. not taking ASA Chronic lymphedema. Chronic kidney disease, stage III. creatinine at baseline Coronary artery disease (CAD). Osteoarthritis/ Degenerative joint disease/ contracture does not complain of pain. Hypertension. here bp not elevated Urinary tract infection. Cx in [place] Klebsiella Here Urine cx VRE on linezolid. GI prophylaxis PPI. Overall prognosis guarded. DISCHARGE MEDICATIONS: Please see below. ALLERGIES: Please see below. PHYSICAL EXAMINATION ON DISCHARGE: Vitals: (see below) General: No acute distress, laying comfortably in bed. frail appearing HEENT: Dry mucous membranes. Neck: No JVD or lymphadenopathy Cardiac: Irregularly irregular. No murmurs Pulm: Clear to auscultation b/l. No wheezing, rhonchi Abd: NT/ND + BS Ext: No edema or cyanosis Right sided weakness at baseline. LABORATORY DATA: Please see below. PROGNOSIS:Poor given comorbidities and advanced dementia ACTIVITY: As tolerated. DIET: Tube feeds RECOMMEND: -Jevity 1.5 start at 20cc/hr then grudually increase by 10cc/hr q8h until reached [id number] continuous -free water flush with 155ml Q4hr (will provide additional 930ml H2O) *will provide 960ml total formula volume, 1440kcal, 61g prot, 1660ml H2O; meeting 100% nutrition needs. Tolerance of enteral feeding AEB no s/sx GI distress, residuals <500ml, no s/sx refeeding syndrome. If no significant improvement after pt gets appropriate nutrition, she will reconsider goals of care. DISCHARGE PLAN/DISPOSITION:[facility] DISCHARGE INSTRUCTIONS: 1. F/u with PCP and cardiology in 1 week. Return to ED If symptoms worsen. DISCHARGE CONDITION: Stable. TIME SPENT ON DISCHARGE: 40 minutes. Vital Signs/I&Os Vital Signs Date Time Temp Pulse Resp B/P (MAP) Pulse Ox O2 Delivery O2 Flow Rate FiO2 11/30/19 12:22 83 112/60 11/30/19 12:00 99.1 21 96 Room Air 11/29/19 17:15 12 I&O- Last 24 Hours up to 6 AM 11/30/19 06:00 Intake Total 2000 ml Output Total 2225 ml Balance -225 ml Laboratory Data Labs 24H Laboratory Tests 2 11/30/19 05:44: Immature Granulocyte % (Auto) 0.9, Neutrophils (%) (Auto) 79.4H, Lymphocytes (%) (Auto) 10.3L, Monocytes (%) (Auto) 7.8H, Eosinophils (%) (Auto) 1.0, Basophils (%) (Auto) 0.6, Neutrophils # (Auto) 8.2, Lymphocytes # (Auto) 1.1L, Monocytes # (Auto) 0.8, Eosinophils # (Auto) 0.1, Basophils # (Auto) 0.1, Nucleated Red Blood Cells % (auto) 0.0, Anion Gap 11, Glomerular Filtration Rate > 60.0, Calcium Level 7.5L, Magnesium Level 1.4L, Total Bilirubin 0.7, Aspartate Amino Transf (AST/SGOT) 12, Alanine Aminotransferase (ALT/SGPT) 15, Alkaline Phosphatase 78, Total Protein 5.4L, Albumin 1.9L, Albumin/Globulin Ratio 0.5L 11/30/19 08:36: Total Creatine Kinase 56, Creatine Kinase MB 3.8H, Creatine Kinase MB Relative Index 6.79H, Troponin I < 0.02 CBC/BMP Laboratory Tests 11/30/19 05:44 Microbiology Microbiology 11/28/19 Stool Occult Blood (HIMA) - Final, Complete 11/27/19 Respiratory Virus Panel (PCR) ([facility]IMA) - Final, Complete Discharge Medications Scheduled Aspirin (Aspirin EC) 81 Mg Tablet.dr, 81 MG PO DAILY, (Reported) Atorvastatin Calcium (Atorvastatin Calcium) 40 Mg Tablet, 40 MG PO QHS, (Reported) Collagenase Clostridium Hist. (Santyl) 30 Gm Oint...g., 1 DOSE TOP BID, (Reported) APPLY TO RIGHT HEEL Digoxin (Digoxin) 125 Mcg Tablet, 125 MCG PO DAILY, (Reported) Metoprolol Succinate (Metoprolol Succinate) 50 Mg Tab.er.24h, 25 MG PO DAILY Mirtazapine (Remeron) 15 Mg Tablet, 15 MG PO DAILY, (Reported) Scheduled PRN Acetaminophen (Tylenol) 325 Mg Tablet, 650 MG PO Q6H PRN for PAIN, (Reported) Bisacodyl (Dulcolax) 10 Mg Supp.rect, 10 MG UT DAILY PRN for CONSTIPATION, (Reported) Magnesium Hydroxide (Milk of Magnesia) 400 Mg/5 Ml Oral.susp, 1,200 MG PO DAILY PRN for CONSTIPATION, (Reported) Sodium Phosphate,[place]-Dibasic (Fleet Enema) 133 Ml Enema, 1 SIDNEY UT DAILY PRN for CONSTIPATION, (Reported) Allergies Coded Allergies: No Known Allergies (Unverified , 11/05/13) DAVID CONKLIN MD Nov 30, 2019 13:39
[2019-11-30] MEDS ORDERED: SLF 3 ML SYR IV SCH (14:00)
[2019-11-30 15:11] LABS: CK-MB VALUE MASS 3.1 NG/ML (<3.6); CPK CREATINE PHOSPHOKINASE 42 U/L (26-192); MB/CK RELATIVE INDEX 7.38 (< OR =4); TROPONIN I < 0.02 NG/ML (< 0.10)
--- NOTE | 2019-12-01 00:10 | ECGEPIP ---
[facility] Test Date: 2019-11-27 Pat Name: OLU PRESLEY Department: Room: [place] [address] Gender: Female Qualitative Researcher: : [id number] Requested By: DAVID CONKLIN Order Number: [id number] Reading MD: William Walters Measurements Intervals [place] Rate: 140 P: [place]: 0 QRS: -21 QRSD: 85 T: 0 QT: 289 QTc: 441 Interpretive Statements ATRIAL FIBRILLATION WITH RAPID VENTRICULAR RESPONSE LOW QRS VOLTAGE IN EXTREMITY LEADS POSSIBLE ANTERIOR MYOCARDIAL INFARCTION, PROBABLY OLD ABNORMAL RHYTHM ECG No prior tracing in the system Electronically Signed on 12-01-2019 0:10:14 EDT by William Walters
[2019-12-01] MEDS ORDERED: DIGOXIN 0.125 MG TAB PEG SCH (09:00)
--- NOTE | 2019-12-10 09:32 | REP ---
PORTABLE CHEST X-RAY: SINGLE VIEW HISTORY: Tachycardia. COMPARISON: Portable chest x-ray 11/15/2019. FINDINGS: There is diffuse interstitial fibrosis pattern in the lung sigala similar to the prior study allowing for differences in technique. Cardiomegaly is observed. No pleural effusion is seen. No focal infiltrate. IMPRESSION: Diffuse pattern of interstitial fibrosis unchanged allowing for differences in technique. Cardiomegaly. No focal infiltrate or pleural effusion seen. MTDD
== END 2019-11-30 15:13 | DRG 70 ==
LOC: M MSPAV 16:52 → EEVIPCON 16:52 → M PCU 11-27 12:41
PROVIDERS: ADMIT Internal Medicine; ATTEND Internal Medicine
PROC: 0DH68UZ Insertion of Feeding Device into Stomach, Via Natural or Artificial Opening Endoscopic (ICD-10-PCS; principal; 2019-11-29 16:00)
DX: G93.41 Metabolic encephalopathy (principal); E43 Unspecified severe protein-calorie malnutrition; E87.0 Hyperosmolality and hypernatremia; I48.20 Chronic atrial fibrillation, unspecified; N39.0 Urinary tract infection, site not specified; I13.2 Hypertensive heart and chronic kidney disease with heart failure and with stage 5 chronic kidney disease, or end stage renal disease; B37.0 Candidal stomatitis; I69.351 Hemiplegia and hemiparesis following cerebral infarction affecting right dominant side; E86.0 Dehydration; E87.6 Hypokalemia; Z66 Do not resuscitate; F03.90 Unspecified dementia, unspecified severity, without behavioral disturbance, psychotic disturbance, mood disturbance, and anxiety; I89.0 Lymphedema, not elsewhere classified; I69.398 Other sequelae of cerebral infarction; R51.9 Headache, unspecified; R62.7 Adult failure to thrive; N18.30 Chronic kidney disease, stage 3 unspecified; I50.9 Heart failure, unspecified; I73.9 Peripheral vascular disease, unspecified; M19.90 Unspecified osteoarthritis, unspecified site; Z79.82 Long term (current) use of aspirin; Z79.899 Other long term (current) drug therapy; M62.461 Contracture of muscle, right lower leg; Z99.3 Dependence on wheelchair